=== PATIENT | female | born 1960 | race Caucasian/White ===

== ENCOUNTER 2016-11-28 22:13 | Emergency (ER) | payer MEDICAID ==
[~2016-11-28] VITALS: Ht 160 cm; Wt 109.0 kg
[~2016-11-28 22:13] MED LIST: ATOR20TA PO; AZEL137S7 BOTHNSTRLS; CLON2TAB4 PO; COR6; DOCU-138 PO; EMPA25TA PO; ENAL20TA PO; ESCI5TAB PO; FAMO20TA8 PO; FLONAS; GABA-290 PO; GLIP5TAB12 PO; HYDR-3735; HYDR-4135; INSU100I24 SQ; INSU100V9 SQ; LANC-335; LIRA0.6P2 SUBCUT; LORA10TA7 PO; MELO-58 PO; METF10002 PO; ONDA4TAB51 PO; OXYB15TA9 PO; PANT40TA4 PO; PIOG30TA26; PROP20TA7 PO; RANI-563; RIBO100T9 PO; SITA100T6; VITAMIN B2; XALAO; [UNRECOGNIZED DRUG - CODE] PO
[2016-11-28] MEDS ORDERED: MORPHINE SULFATE 4 MG/ML CPJ (NOT FOR IM USE) IV STA (23:53)
[2016-11-28] MEDS ORDERED: ONDANSETRON HCL 4MG/2ML VIAL IV STA (23:53)
[2016-11-29] MEDS ORDERED: DIPHENHYDRAMINE 50MG/ML VIAL IV ONE
[2016-11-29 00:30] LABS: BASOPHILS % 0.4 % (0.0-2.0); EOSINOPHILS % 2.4 % (0.0-5.0); HEMATOCRIT. 35.5 % (36.0-48.0); HEMOGLOBIN. 11.9 g/dL (12.0-16.0); LYMPHOCYTES % 25.4 % (20.0-50.0); MEAN CORPUSCULAR HEMOGLOBIN 27.1 pg (28.0-32.0); MEAN CORPUSCULAR VOLUME 81.2 fL (81.0-99.0); MEAN PLATELET VOLUME 8.2 fl (7.4-10.4); MONOCYTES % 8.2 % (2.0-8.0); NEUTROPHILS % 63.6 % (40.0-76.0); PLATELET 218 x1000/uL (130-400); RED BLOOD CELL COUNT 4.37 mill/uL (4.2-5.4); RED CELL DISTRIBUTION WIDTH 14.9 % (11.6-14.6)
[2016-11-29 00:35] LABS: INR 1.2; PROTHROMBIN TIME 12.2 sec
[2016-11-29 00:41] LABS: CLARITY URINE CLEAR (CLEAR); COLOR URINE YELLOW (YELLOW); GLUCOSE URINE NEGATIVE (NEGATIVE); KETONES URINE NEGATIVE (NEGATIVE); LEUKOCYTE ESTERASE URINE 1+ (NEGATIVE); NITRITE URINE NEGATIVE (NEGATIVE); OCCULT BLOOD URINE 3+ (NEGATIVE); PH URINE >=9.0 (4.5-8.0); PROTEIN URINE 1+ (NEGATIVE); SPECIFIC GRAVITY URINE 1.011 (1.005-1.030)
[2016-11-29 00:43] LABS: CARBON DIOXIDE 28 mEq/L (21-32); CHLORIDE 105 mEq/L (98-107); TROPONIN I < 0.02 ng/mL (0.00-0.04)
[2016-11-29] MEDS ORDERED: MORPHINE SULFATE 4 MG/ML CPJ (NOT FOR IM USE) IV ONE (02:30)
[2016-11-29] MEDS ORDERED: LEVOFLOXACIN 250MG TABLET PO ONE (02:30)
[2016-11-29] MEDS ORDERED: ONDANSETRON HCL 4MG/2ML VIAL IV ONE (02:30)
[2016-11-29 03:11] VITALS: BP 138/64
== END 2016-11-29 04:40 | disposition home or self-care (01) ==
LOC: ER 22:13
DX: G89.18 Other acute postprocedural pain (principal); N39.0 Urinary tract infection, site not specified; E11.9 Type 2 diabetes mellitus without complications; K21.9 Gastro-esophageal reflux disease without esophagitis; I10 Essential (primary) hypertension; F41.9 Anxiety disorder, unspecified; M19.90 Unspecified osteoarthritis, unspecified site; K76.0 Fatty (change of) liver, not elsewhere classified; E78.00 Pure hypercholesterolemia, unspecified; Z68.41 Body mass index [BMI] 40.0-44.9, adult; E66.9 Obesity, unspecified; Z90.49 Acquired absence of other specified parts of digestive tract; Z79.4 Long term (current) use of insulin; Z88.6 Allergy status to analgesic agent; Z88.0 Allergy status to penicillin; Z88.2 Allergy status to sulfonamides; Z98.890 Other specified postprocedural states
CPT/HCPCS: 36415; 71010; 74176; 80053; 81001; 83690; 83880; 84484; 85025; 85610; 93005; 96374; 96375; 96376; 99285; J2270; J2405; Z7610; J1200

== ENCOUNTER 2017-10-19 11:40 | Emergency (ER) | payer MEDICAID ==
[~2017-10-19] VITALS: Ht 152.4 cm; Wt 113.0 kg
[~2017-10-19 11:40] MED LIST changes: +MELO-106 PO; -MELO-58 PO; +METO-544 PO; +SITA100T11; -SITA100T6; -[UNRECOGNIZED DRUG - CODE] PO
[2017-10-19] MEDS ORDERED: METOCLOPRAMIDE HCL 10MG/2ML VIAL IV ONE (14:15)
[2017-10-19] MEDS ORDERED: MORPHINE SULFATE 2 MG/ML CPJ (NOT FOR IM USE) IV ONE (14:15)
[2017-10-19] MEDS ORDERED: DIPHENHYDRAMINE 50MG/ML VIAL IV ONE (14:15)
[2017-10-19] MEDS ORDERED: KETOROLAC 30MG/ML VIAL IV SCH (15:30)
[2017-10-19] MEDS ORDERED: MORPHINE SULFATE 4 MG/ML CPJ (NOT FOR IM USE) IV ONE (15:45)
[2017-10-19 17:01] VITALS: BP 124/62
== END 2017-10-19 17:04 | disposition home or self-care (01) ==
LOC: ER 12:38
DX: S90.111A Contusion of right great toe without damage to nail, initial encounter (principal); G43.909 Migraine, unspecified, not intractable, without status migrainosus; I10 Essential (primary) hypertension; Z88.0 Allergy status to penicillin; Z88.2 Allergy status to sulfonamides; Z88.5 Allergy status to narcotic agent; Z88.6 Allergy status to analgesic agent; Z88.8 Allergy status to other drugs, medicaments and biological substances; Z79.4 Long term (current) use of insulin; W20.8XXA Other cause of strike by thrown, projected or falling object, initial encounter; Y93.89 Activity, other specified; Y92.89 Other specified places as the place of occurrence of the external cause; Y99.8 Other external cause status
CPT/HCPCS: 73630; 96374; 96375; 99284; J1885; J2270; J2765

== ENCOUNTER 2019-01-11 19:33 | Inpatient (IN) | payer MEDICAID ==
[~2019-01-11] VITALS: Ht 160 cm; Wt 112.7 kg
[~2019-01-11 19:33] MED LIST changes: +CLON2TAB11 PO; -CLON2TAB4 PO; +METF-416 PO; -METF10002 PO; -PIOG30TA26; +PIOG30TA70
[2019-01-11 21:25] LABS: EOSINOPHILS % 2.1 % (0.0-5.0); HEMATOCRIT. 33.3 % (36.0-48.0); HEMOGLOBIN. 11.1 g/dL (12.0-16.0); LYMPHOCYTES % 41.4 % (20.0-50.0); MEAN CORPUSCULAR HEMOGLOBIN 28.5 pg (28.0-32.0); MEAN CORPUSCULAR VOLUME 85.7 fL (81.0-99.0); MEAN PLATELET VOLUME 8.7 fl (7.4-10.4); MONOCYTES % 8.9 % (2.0-8.0); NEUTROPHILS % 46.6 % (40.0-76.0); PLATELET 115 x1000/uL (130-400); RED BLOOD CELL COUNT 3.89 mill/uL (4.2-5.4); RED CELL DISTRIBUTION WIDTH 16.2 % (11.6-14.6)
[2019-01-11 21:30] LABS: CHLORIDE 106 mEq/L (98-107)
[2019-01-11 21:39] LABS: CREATINE KINASE 257 IU/L (26-192)
[2019-01-11] MEDS ORDERED: IPRATROPIUM/ALBUTEROL 0.5-3(2.5)MG/3ML NEB INH PRN (22:45)
[2019-01-11] MEDS ORDERED: CLONIDINE 0.1MG TABLET PO PRN (22:45)
[2019-01-11] MEDS ORDERED: MAGNESIUM/ALUMINUM HYDROXIDE/SIMETHICONE 30ML UDC PO PRN (22:45)
[2019-01-11] MEDS ORDERED: ONDANSETRON HCL 4MG/2ML INJ IV PRN (22:45)
[2019-01-11] MEDS ORDERED: ACETAMINOPHEN 325MG TABLET PO PRN (22:45)
[2019-01-11] MEDS ORDERED: GUAIFENESIN 200MG/10ML SUGAR FREE UDC PO PRN (22:45)
[2019-01-11] MEDS ORDERED: HYDROCODONE/ACETAMINOPHEN 5/325MG TABLET PO PRN (22:45)
[2019-01-11 23:14] LABS: CLARITY URINE CLEAR (CLEAR); COLOR URINE YELLOW (YELLOW); KETONES URINE NEGATIVE (NEGATIVE); LEUKOCYTE ESTERASE URINE NEGATIVE (NEGATIVE); NITRITE URINE NEGATIVE (NEGATIVE); OCCULT BLOOD URINE 1+ (NEGATIVE); PH URINE 7.5 (4.5-8.0); PROTEIN URINE NEGATIVE (NEGATIVE); SPECIFIC GRAVITY URINE 1.005 (1.005-1.030); UROBILINOGEN URINE 0.2 E.U./dL (0.2-1.0)
[2019-01-11 23:33] LABS: *AMPHETAMINES SCREEN URINE NEGATIVE (NEGATIVE); *BARBITURATES SCREEN URINE NEGATIVE (NEGATIVE)
[2019-01-11 23:34] LABS: *BENZODIAZEPINES SCREEN URINE NEGATIVE (NEGATIVE); *COCAINE SCREEN URINE NEGATIVE (NEGATIVE); CANNABINOID URINE SCREEN NEGATIVE (NEGATIVE); METHADONE URINE SCREEN NEGATIVE (NEGATIVE); OPIATES URINE SCREEN NEGATIVE (NEGATIVE); PHENCYCLIDINE URINE SCREEN NEGATIVE (NEGATIVE)
[2019-01-12] VITALS (7 sets, daily range): BP systolic 125–163; BP diastolic 52–67
[2019-01-12] MEDS ORDERED: INSULIN LISPRO (HIGH DOSE) 100 UNITS/ML SUBCUT SCH (01:30)
[2019-01-12] MEDS ORDERED: DEXTROSE 50% WATER 50ML SYRINGE IV PRN (01:30)
[2019-01-12 01:59] LABS: CHLORIDE 108 mEq/L (98-107)
[2019-01-12] MEDS: BLOOD SUGAR DIAGNOSTIC STRIP TEST SCH ×4 (05:59→20:07)
[2019-01-12] MEDS ORDERED: BUME0.5T5 MT (06:11)
[2019-01-12] MEDS ORDERED: TOPI25CA2 MT (06:11)
[2019-01-12] MEDS ORDERED: ESOM20CA37 PO (06:11)
[2019-01-12] MEDS ORDERED: BACL20TA MT (06:11)
[2019-01-12] MEDS ORDERED: LIDO30CR46 TP (06:11)
[2019-01-12] MEDS ORDERED: TC1U15 TP (06:11)
[2019-01-12] MEDS ORDERED: CALC-25 MT (06:11)
[2019-01-12] MEDS ORDERED: CLOT15CR2 TP (06:11)
[2019-01-12] MEDS ORDERED: TRAM50TA3 MT (06:11)
[2019-01-12] MEDS ORDERED: POTA8TAB8 MT (06:11)
[2019-01-12] MEDS ORDERED: CLOB60CR4 TP (06:11)
[2019-01-12] MEDS ORDERED: METR1KIT2 TP (06:11)
[2019-01-12] MEDS ORDERED: PRAV20TA57 MT (06:11)
[2019-01-12] MEDS ORDERED: CLIN300C11 MT (06:11)
[2019-01-12] MEDS: INSULIN LISPRO (HIGH DOSE) 100 UNITS/ML SUBCUT SCH ×4 (06:16→21:05)
[2019-01-12] MEDS ORDERED: PROP20TA7 MT (06:24)
[2019-01-12] MEDS ORDERED: ESCI20TA36 MT (06:26)
[2019-01-12] MEDS: ENOXAPARIN 30MG/0.3ML SYR SUBCUT SCH ×2 (10:04→21:00)
[2019-01-12] MEDS: DOCUSATE SODIUM 100MG CAPSULE PO PRN ×2 (10:04→21:06)
[2019-01-12 13:37] LABS: HEPATITIS B SURFACE ANTIGEN NEGATIVE
[2019-01-12 14:07] LABS: HEPATITIS A AB IGM NEGATIVE (NEGATIVE)
[2019-01-12] MEDS ORDERED: LORATADINE 10MG TABLET PO PRN (14:15)
[2019-01-12] MEDS: AMLODIPINE 2.5MG TABLET PO SCH (15:28)
[2019-01-12] MEDS: GABAPENTIN 300MG CAPSULE PO SCH ×2 (15:28→17:23)
[2019-01-12] MEDS: PROPRANOLOL HCL 10MG TABLET PO SCH (15:29)
[2019-01-12] MEDS: ENALAPRIL 5MG TABLET PO SCH (15:29)
[2019-01-12] MEDS: POTASSIUM CHLORIDE 8 MEQ TABLET.SA PO SCH (15:29)
[2019-01-12 16:19] LABS: BASOPHILS % 0.7 % (0.0-2.0); EOSINOPHILS % 2.6 % (0.0-5.0); HEMOGLOBIN. 11.6 g/dL (12.0-16.0); MEAN CORPUSCULAR HEMOGLOBIN 28.7 pg (28.0-32.0); MEAN CORPUSCULAR VOLUME 86.4 fL (81.0-99.0); MEAN PLATELET VOLUME 9.3 fl (7.4-10.4); MONOCYTES % 9.3 % (2.0-8.0); NEUTROPHILS % 43.4 % (40.0-76.0); PLATELET 106 x1000/uL (130-400); RED BLOOD CELL COUNT 4.05 mill/uL (4.2-5.4); RED CELL DISTRIBUTION WIDTH 16.5 % (11.6-14.6)
[2019-01-12 16:34] LABS: LDL CHOLESTEROL 83 mg/dL (5-100)
[2019-01-12 16:36] LABS: CREATINE KINASE 163 IU/L (26-192); HDL CHOLESTEROL 43 mg/dL (40-59)
[2019-01-12 16:38] LABS: CREATINE KINASE MB FRACTION 2.3 ng/mL (0.5-3.6)
[2019-01-12] MEDS: BUMETANIDE 1MG TABLET PO SCH (17:23)
[2019-01-12] MEDS: TOPIRAMATE 25MG TABLET PO SCH (21:00)
[2019-01-12] MEDS: ATORVASTATIN CALCIUM 20MG TABLET PO SCH (21:00)
[2019-01-13] VITALS: BP 140/65
[2019-01-13 04:00] VITALS: BP 126/50
[2019-01-13] MEDS: BLOOD SUGAR DIAGNOSTIC STRIP TEST SCH ×4 (06:04→21:00)
[2019-01-13] MEDS: TOPIRAMATE 25MG TABLET PO SCH ×3 (06:10→22:07)
[2019-01-13] MEDS: INSULIN LISPRO (HIGH DOSE) 100 UNITS/ML SUBCUT SCH ×4 (06:15→22:08)
[2019-01-13 08:00] VITALS: BP 136/61
[2019-01-13] MEDS: PROPRANOLOL HCL 10MG TABLET PO SCH (09:03)
[2019-01-13] MEDS: GABAPENTIN 300MG CAPSULE PO SCH ×2 (09:03→17:24)
[2019-01-13] MEDS: DOCUSATE SODIUM 100MG CAPSULE PO PRN ×2 (09:04→22:12)
[2019-01-13] MEDS: POTASSIUM CHLORIDE 8 MEQ TABLET.SA PO SCH (09:04)
[2019-01-13] MEDS: AMLODIPINE 2.5MG TABLET PO SCH (09:04)
[2019-01-13] MEDS: ENALAPRIL 5MG TABLET PO SCH (09:04)
[2019-01-13] MEDS: ENOXAPARIN 30MG/0.3ML SYR SUBCUT SCH ×2 (09:05→22:07)
[2019-01-13] MEDS: BUMETANIDE 1MG TABLET PO SCH (09:27)
[2019-01-13] MEDS ORDERED: BACLOFEN 10MG TABLET PO NR (10:30)
[2019-01-13 12:00] VITALS: BP 142/60
[2019-01-13] MEDS ORDERED: MECLIZINE 25MG TABLET PO PRN (13:15)
[2019-01-13 16:00] VITALS: BP 134/63
[2019-01-13 20:00] VITALS: BP_SYST 118; BP_SYST 129; BP_SYST 139; BP_DIAS 47; BP_DIAS 54; BP_DIAS 60
[2019-01-13] MEDS: ATORVASTATIN CALCIUM 20MG TABLET PO SCH (22:07)
[2019-01-13] MEDS: INSULIN GLARGINE UD 100 UNITS/ML SYR SUBCUT SCH (22:09)
[2019-01-14] VITALS: BP 128/57
[2019-01-14 04:00] VITALS: BP 125/50
[2019-01-14] MEDS: TOPIRAMATE 25MG TABLET PO SCH ×3 (06:14→21:52)
[2019-01-14] MEDS: INSULIN LISPRO (HIGH DOSE) 100 UNITS/ML SUBCUT SCH ×3 (06:18→21:56)
[2019-01-14] MEDS: BLOOD SUGAR DIAGNOSTIC STRIP TEST SCH ×4 (06:19→21:56)
[2019-01-14] MEDS ORDERED: INSULIN LISPRO 100 UNITS/ML SUBCUT SCH (06:45)
[2019-01-14 08:00] VITALS: BP 139/59
[2019-01-14] MEDS: DOCUSATE SODIUM 100MG CAPSULE PO PRN (09:09)
[2019-01-14] MEDS: POTASSIUM CHLORIDE 8 MEQ TABLET.SA PO SCH (09:10)
[2019-01-14] MEDS: PROPRANOLOL HCL 10MG TABLET PO SCH (09:10)
[2019-01-14] MEDS: AMLODIPINE 2.5MG TABLET PO SCH (09:10)
[2019-01-14] MEDS: ENALAPRIL 5MG TABLET PO SCH (09:11)
[2019-01-14] MEDS: GABAPENTIN 300MG CAPSULE PO SCH ×2 (09:11→17:00)
[2019-01-14] MEDS: BUMETANIDE 1MG TABLET PO SCH (09:11)
[2019-01-14] MEDS: ENOXAPARIN 30MG/0.3ML SYR SUBCUT SCH ×2 (09:13→21:56)
[2019-01-14] MEDS: INSULIN GLARGINE UD 100 UNITS/ML SYR SUBCUT SCH ×2 (09:15→21:55)
[2019-01-14 12:00] VITALS: BP 137/57
[2019-01-14] MEDS: INSULIN LISPRO 100 UNITS/ML SUBCUT SCH ×2 (12:38→16:45)
[2019-01-14 16:00] VITALS: BP 149/66
[2019-01-14 20:00] VITALS: BP_SYST 113; BP_SYST 139; BP_DIAS 27; BP_DIAS 63
[2019-01-14 20:17] LABS: BASOPHILS % 0.7 % (0.0-2.0); EOSINOPHILS % 2.4 % (0.0-5.0); HEMATOCRIT. 41.4 % (36.0-48.0); HEMOGLOBIN. 13.5 g/dL (12.0-16.0); MEAN CORPUSCULAR HEMOGLOBIN 28.4 pg (28.0-32.0); MEAN CORPUSCULAR VOLUME 87.1 fL (81.0-99.0); MEAN PLATELET VOLUME 9.8 fl (7.4-10.4); MONOCYTES % 10.5 % (2.0-8.0); NEUTROPHILS % 46.4 % (40.0-76.0); PLATELET 128 x1000/uL (130-400); RED BLOOD CELL COUNT 4.75 mill/uL (4.2-5.4); RED CELL DISTRIBUTION WIDTH 16.6 % (11.6-14.6)
[2019-01-14 20:24] LABS: CHLORIDE 107 mEq/L (98-107)
[2019-01-14] MEDS: ATORVASTATIN CALCIUM 20MG TABLET PO SCH (21:52)
[2019-01-14 22:01] LABS: INR 1.2; PROTHROMBIN TIME 12.6 sec (9.6-11.0)
[2019-01-15] VITALS: BP 113/27
[2019-01-15 04:00] VITALS: BP 134/53
[2019-01-15] MEDS: BLOOD SUGAR DIAGNOSTIC STRIP TEST SCH ×4 (06:04→21:28)
[2019-01-15] MEDS: TOPIRAMATE 25MG TABLET PO SCH ×3 (06:04→21:40)
[2019-01-15] MEDS: INSULIN LISPRO (HIGH DOSE) 100 UNITS/ML SUBCUT SCH ×4 (06:15→21:39)
[2019-01-15] MEDS: INSULIN LISPRO 100 UNITS/ML SUBCUT SCH ×3 (06:15→18:45)
[2019-01-15 06:34] LABS: BASOPHILS % 0.8 % (0.0-2.0); EOSINOPHILS % 2.5 % (0.0-5.0); HEMATOCRIT. 38.2 % (36.0-48.0); HEMOGLOBIN. 12.9 g/dL (12.0-16.0); MEAN CORPUSCULAR HEMOGLOBIN 28.8 pg (28.0-32.0); MEAN CORPUSCULAR VOLUME 85.4 fL (81.0-99.0); MEAN PLATELET VOLUME 9.2 fl (7.4-10.4); MONOCYTES % 8.1 % (2.0-8.0); NEUTROPHILS % 47.6 % (40.0-76.0); PLATELET 135 x1000/uL (130-400); RED BLOOD CELL COUNT 4.48 mill/uL (4.2-5.4); RED CELL DISTRIBUTION WIDTH 16.7 % (11.6-14.6)
[2019-01-15 06:37] LABS: CHLORIDE 108 mEq/L (98-107)
[2019-01-15 08:00] VITALS: BP_SYST 114; BP_SYST 120; BP_SYST 124; BP_DIAS 51; BP_DIAS 60
[2019-01-15] MEDS: POTASSIUM CHLORIDE 8 MEQ TABLET.SA PO SCH (08:35)
[2019-01-15] MEDS: ENALAPRIL 5MG TABLET PO SCH (08:35)
[2019-01-15] MEDS: GABAPENTIN 300MG CAPSULE PO SCH ×2 (08:36→18:40)
[2019-01-15] MEDS: BUMETANIDE 1MG TABLET PO SCH (08:36)
[2019-01-15] MEDS: AMLODIPINE 2.5MG TABLET PO SCH (08:36)
[2019-01-15] MEDS: ENOXAPARIN 30MG/0.3ML SYR SUBCUT SCH ×2 (08:37→21:40)
[2019-01-15] MEDS: PROPRANOLOL HCL 10MG TABLET PO SCH (08:37)
[2019-01-15] MEDS: INSULIN GLARGINE UD 100 UNITS/ML SYR SUBCUT SCH ×2 (10:30→21:57)
[2019-01-15 12:00] VITALS: BP 125/52
[2019-01-15] MEDS ORDERED: AMLO2.5T45 PO (13:10)
[2019-01-15 15:02] LABS: BG BASE EXCESS -3.5 mmol/L (-2.0-2.0); BG CARBOXYHEMOGLOBIN 0.7 % (0.5-1.5); BG DEOXYHEMOGLOBIN 6.2 % (0.0-5.0); BG FRACTION INSPIRED OXYGEN 21; BG HCO3 ACT 19.8 mmol/L (22.0-26.0); BG METHEMOGLOBIN 0.2 % (0.0-1.5); BG OXYGEN SATURATION 93.7 % (92.0-98.5); BG OXYHEMOGLOBIN 92.9 % (94.0-97.0); BG PCO2 31.1 mmHg (35.0-45.0); BG PH 7.422 (7.350-7.450); BG PO2 72.1 mmHg (75.0-100.0); BG SAMPLE SITE LEFT BRACHIAL; BG TOTAL HEMOGLOBIN 14.4 g/dL (12.0-18.0); BG VENT MODE ROOM AIR
[2019-01-15 16:00] VITALS: BP 125/53
[2019-01-15 20:00] VITALS: BP_SYST 153; BP_SYST 155; BP_SYST 157; BP_DIAS 71; BP_DIAS 77; BP_DIAS 79
[2019-01-15] MEDS: ATORVASTATIN CALCIUM 20MG TABLET PO SCH (21:57)
[2019-01-16] VITALS: BP 118/56
[2019-01-16 04:00] VITALS: BP 132/65
[2019-01-16] MEDS: BLOOD SUGAR DIAGNOSTIC STRIP TEST SCH ×4 (05:54→20:56)
[2019-01-16] MEDS: TOPIRAMATE 25MG TABLET PO SCH ×3 (06:02→21:48)
[2019-01-16] MEDS: INSULIN LISPRO 100 UNITS/ML SUBCUT SCH ×3 (06:40→18:42)
[2019-01-16] MEDS: INSULIN LISPRO (HIGH DOSE) 100 UNITS/ML SUBCUT SCH ×4 (06:41→21:49)
[2019-01-16] MEDS: ENALAPRIL 5MG TABLET PO SCH (09:45)
[2019-01-16] MEDS: GABAPENTIN 300MG CAPSULE PO SCH ×2 (09:45→17:08)
[2019-01-16] MEDS: PROPRANOLOL HCL 10MG TABLET PO SCH (09:45)
[2019-01-16] MEDS: POTASSIUM CHLORIDE 8 MEQ TABLET.SA PO SCH (09:45)
[2019-01-16] MEDS: AMLODIPINE 2.5MG TABLET PO SCH (09:46)
[2019-01-16] MEDS: ENOXAPARIN 30MG/0.3ML SYR SUBCUT SCH ×2 (09:46→21:48)
[2019-01-16] MEDS: INSULIN GLARGINE UD 100 UNITS/ML SYR SUBCUT SCH ×2 (09:47→21:49)
[2019-01-16] MEDS: BUMETANIDE 1MG TABLET PO SCH (09:51)
[2019-01-16] MEDS ORDERED: GADOBENATE DIMEGLUMINE 529 MG/ML 10ML IV ONE (13:45)
[2019-01-16] MEDS: LACTULOSE 20G/30ML UDC PO SCH ×2 (14:30→21:48)
[2019-01-16] MEDS ORDERED: DIAZEPAM 5 MG TABLET PO NR (14:30)
[2019-01-16 16:00] VITALS: BP 100/50
[2019-01-16] MEDS ORDERED: LACTULOSE 20G/30ML UDC PO SCH (17:00)
[2019-01-16 18:34] LABS: VITAMIN B12 SERUM 540 pg/mL (211-911)
[2019-01-16] MEDS: THIAMINE HCL 100MG TABLET PO SCH (18:41)
[2019-01-16] MEDS: MULTIVITAMINS,THER W-MINERALS TABLET PO SCH (18:41)
[2019-01-16] MEDS: FOLIC ACID/VITAMIN B COMP W-C TABLET PO SCH (18:41)
[2019-01-16 20:00] VITALS: BP 118/59
[2019-01-16] MEDS: ATORVASTATIN CALCIUM 20MG TABLET PO SCH (21:48)
[2019-01-17] VITALS: BP 106/53
[2019-01-17 04:00] VITALS: BP 124/58
[2019-01-17] MEDS: BLOOD SUGAR DIAGNOSTIC STRIP TEST SCH ×4 (07:06→20:37)
[2019-01-17] MEDS: LACTULOSE 20G/30ML UDC PO SCH ×3 (07:25→20:37)
[2019-01-17] MEDS: TOPIRAMATE 25MG TABLET PO SCH ×3 (07:25→20:36)
[2019-01-17] MEDS: INSULIN LISPRO (HIGH DOSE) 100 UNITS/ML SUBCUT SCH ×4 (07:26→20:45)
[2019-01-17 08:00] VITALS: BP 149/65
[2019-01-17] MEDS: ENALAPRIL 5MG TABLET PO SCH (09:01)
[2019-01-17] MEDS: BUMETANIDE 1MG TABLET PO SCH (09:02)
[2019-01-17] MEDS: PROPRANOLOL HCL 10MG TABLET PO SCH (09:02)
[2019-01-17] MEDS: FOLIC ACID/VITAMIN B COMP W-C TABLET PO SCH (09:02)
[2019-01-17] MEDS: AMLODIPINE 2.5MG TABLET PO SCH (09:02)
[2019-01-17] MEDS: THIAMINE HCL 100MG TABLET PO SCH (09:02)
[2019-01-17] MEDS: GABAPENTIN 300MG CAPSULE PO SCH ×2 (09:02→17:25)
[2019-01-17] MEDS: POTASSIUM CHLORIDE 8 MEQ TABLET.SA PO SCH (09:02)
[2019-01-17] MEDS: MULTIVITAMINS,THER W-MINERALS TABLET PO SCH (09:03)
[2019-01-17] MEDS: ENOXAPARIN 30MG/0.3ML SYR SUBCUT SCH ×2 (09:03→20:36)
[2019-01-17] MEDS: INSULIN LISPRO 100 UNITS/ML SUBCUT SCH ×3 (09:04→17:28)
[2019-01-17] MEDS: INSULIN GLARGINE UD 100 UNITS/ML SYR SUBCUT SCH ×2 (09:43→20:51)
[2019-01-17 12:00] VITALS: BP 118/66
[2019-01-17 20:13] VITALS: BP 127/67
[2019-01-17 20:35] LABS: BASOPHILS % 0.9 % (0.0-2.0); EOSINOPHILS % 2.1 % (0.0-5.0); HEMATOCRIT. 43.1 % (36.0-48.0); HEMOGLOBIN. 14.3 g/dL (12.0-16.0); LYMPHOCYTES % 40.3 % (20.0-50.0); MEAN CORPUSCULAR HEMOGLOBIN 28.8 pg (28.0-32.0); MEAN CORPUSCULAR VOLUME 86.8 fL (81.0-99.0); MEAN PLATELET VOLUME 9.6 fl (7.4-10.4); MONOCYTES % 10.9 % (2.0-8.0); NEUTROPHILS % 45.8 % (40.0-76.0); PLATELET 161 x1000/uL (130-400); RED BLOOD CELL COUNT 4.96 mill/uL (4.2-5.4); RED CELL DISTRIBUTION WIDTH 16.5 % (11.6-14.6)
[2019-01-17] MEDS: ATORVASTATIN CALCIUM 20MG TABLET PO SCH (20:36)
[2019-01-17] MEDS: RIFAXIMIN 550 MG TABLET PO SCH (20:36)
[2019-01-17 20:52] LABS: CHLORIDE 110 mEq/L (98-107)
[2019-01-18] VITALS: BP 129/59
[2019-01-18 04:00] VITALS: BP 136/69
[2019-01-18 05:15] LABS: HIV SCREEN 4G Non Reactive (Non Reactive)
[2019-01-18] MEDS: LACTULOSE 20G/30ML UDC PO SCH ×2 (06:09→16:38)
[2019-01-18] MEDS: TOPIRAMATE 25MG TABLET PO SCH ×2 (06:09→16:38)
[2019-01-18] MEDS: BLOOD SUGAR DIAGNOSTIC STRIP TEST SCH ×3 (06:11→16:32)
[2019-01-18] MEDS: INSULIN LISPRO (HIGH DOSE) 100 UNITS/ML SUBCUT SCH ×3 (06:12→16:41)
[2019-01-18] MEDS: INSULIN LISPRO 100 UNITS/ML SUBCUT SCH ×3 (06:16→16:41)
[2019-01-18 08:19] VITALS: BP 129/55
[2019-01-18] MEDS: INSULIN GLARGINE UD 100 UNITS/ML SYR SUBCUT SCH (09:24)
[2019-01-18] MEDS: FOLIC ACID/VITAMIN B COMP W-C TABLET PO SCH (09:26)
[2019-01-18] MEDS: GABAPENTIN 300MG CAPSULE PO SCH ×2 (09:26→16:38)
[2019-01-18] MEDS: AMLODIPINE 2.5MG TABLET PO SCH (09:26)
[2019-01-18] MEDS: MULTIVITAMINS,THER W-MINERALS TABLET PO SCH (09:26)
[2019-01-18] MEDS: POTASSIUM CHLORIDE 8 MEQ TABLET.SA PO SCH (09:26)
[2019-01-18] MEDS: ENALAPRIL 5MG TABLET PO SCH (09:26)
[2019-01-18] MEDS: RIFAXIMIN 550 MG TABLET PO SCH (09:26)
[2019-01-18] MEDS: PROPRANOLOL HCL 10MG TABLET PO SCH (09:27)
[2019-01-18] MEDS: BUMETANIDE 1MG TABLET PO SCH (09:27)
[2019-01-18] MEDS: THIAMINE HCL 100MG TABLET PO SCH (09:27)
[2019-01-18] MEDS: ENOXAPARIN 30MG/0.3ML SYR SUBCUT SCH (09:28)
[2019-01-18 12:50] VITALS: BP 180/40
[2019-01-18 13:30] LABS: BASOPHILS % 0.9 % (0.0-2.0); EOSINOPHILS % 2.1 % (0.0-5.0); HEMATOCRIT. 41.7 % (36.0-48.0); HEMOGLOBIN. 13.8 g/dL (12.0-16.0); LYMPHOCYTES % 50.8 % (20.0-50.0); MEAN CORPUSCULAR HEMOGLOBIN 28.6 pg (28.0-32.0); MEAN CORPUSCULAR VOLUME 86.1 fL (81.0-99.0); MEAN PLATELET VOLUME 9.8 fl (7.4-10.4); MONOCYTES % 9.6 % (2.0-8.0); NEUTROPHILS % 36.6 % (40.0-76.0); PLATELET 134 x1000/uL (130-400); RED BLOOD CELL COUNT 4.84 mill/uL (4.2-5.4); RED CELL DISTRIBUTION WIDTH 16.5 % (11.6-14.6)
[2019-01-18 13:35] LABS: CHLORIDE 106 mEq/L (98-107)
[2019-01-18 16:33] VITALS: BP 100/36
== END 2019-01-18 18:10 | disposition home or self-care (01) | DRG 279 ==
LOC: ER 20:30 → EDBEDREQ 22:31 → EDBEDREQTM 22:31 → ENRESERV 01-12 01:01 → 5WST 01-12 02:34
PROVIDERS: ADMIT Internal Medicine; ATTEND Internal Medicine
DX: K72.90 Hepatic failure, unspecified without coma (principal); G93.41 Metabolic encephalopathy; K65.2 Spontaneous bacterial peritonitis; D68.9 Coagulation defect, unspecified; D69.6 Thrombocytopenia, unspecified; I67.82 Cerebral ischemia; E66.01 Morbid (severe) obesity due to excess calories; G90.8 Other disorders of autonomic nervous system; R07.89 Other chest pain; I11.9 Hypertensive heart disease without heart failure; K74.60 Unspecified cirrhosis of liver; E11.9 Type 2 diabetes mellitus without complications; E78.5 Hyperlipidemia, unspecified; I25.10 Atherosclerotic heart disease of native coronary artery without angina pectoris; D64.9 Anemia, unspecified; S09.90XA Unspecified injury of head, initial encounter; X58.XXXA Exposure to other specified factors, initial encounter; M19.90 Unspecified osteoarthritis, unspecified site; R55 Syncope and collapse; R74.0 Nonspecific elevation of levels of transaminase and lactic acid dehydrogenase [LDH]; Z86.73 Personal history of transient ischemic attack (TIA), and cerebral infarction without residual deficits; I25.2 Old myocardial infarction; Z79.4 Long term (current) use of insulin; Z90.49 Acquired absence of other specified parts of digestive tract; Z88.0 Allergy status to penicillin; Z88.2 Allergy status to sulfonamides; Z88.6 Allergy status to analgesic agent; Z88.5 Allergy status to narcotic agent; Z88.8 Allergy status to other drugs, medicaments and biological substances; Z68.42 Body mass index [BMI] 45.0-49.9, adult; Z79.84 Long term (current) use of oral hypoglycemic drugs; Z79.899 Other long term (current) drug therapy; Y93.89 Activity, other specified; Y92.89 Other specified places as the place of occurrence of the external cause; Y99.8 Other external cause status; Z71.3 Dietary counseling and surveillance
CPT/HCPCS: 36415; 36600; 70551; 71045; 73600; 76700; 80048; 80061; 80076; 80305; 82140; 82375; 82550; 82553; 82607; 82693; 82805; 82962; 83036; 83735; 83880; 84145; 84443; 84484; 86705; 86709; 86803; 87340; 87389; 93005; 93306; 93880; 97116; 97162; 97166; 97530; 99285; A9577; C1893; J1650; J1815; J8597

== ENCOUNTER 2019-09-19 17:23 | Emergency (ER) | payer MEDICAID ==
[~2019-09-19] VITALS: Ht 165.1 cm; Wt 152.0 kg
[~2019-09-19 17:23] MED LIST changes: +AMLO2.5T45 PO; -AZEL137S7 BOTHNSTRLS; +BUME0.5T5 MT; +CALC-25 MT; +CLOB60CR4 TP; -CLON2TAB11 PO; +CLOT15CR2 TP; -COR6; -EMPA25TA PO; +ESCI20TA43 MT; -ESCI5TAB PO; +ESOM20CA37 PO; -FAMO20TA8 PO; -FLONAS; -GLIP5TAB12 PO; -HYDR-3735; -HYDR-4135; -LIRA0.6P2 SUBCUT; -MELO-106 PO; -METO-544 PO; +METR1KIT2 TP; -ONDA4TAB51 PO; -PANT40TA4 PO; -PIOG30TA70; +POTA8TAB8 MT; -PROP20TA7 PO; -RANI-563; -RIBO100T9 PO; -SITA100T11; +TOPI25CA5 MT; -VITAMIN B2; -XALAO
[2019-09-19 18:15] LABS: BASOPHILS % 0.6 % (0.0-2.0); EOSINOPHILS % 1.9 % (0.0-5.0); HEMATOCRIT. 36.8 % (36.0-48.0); HEMOGLOBIN. 12.5 g/dL (12.0-16.0); LYMPHOCYTES % 34.1 % (20.0-50.0); MEAN CORPUSCULAR HEMOGLOBIN 30.3 pg (28.0-32.0); MONOCYTES % 7.6 % (2.0-8.0); NEUTROPHILS % 55.8 % (40.0-76.0); PLATELET 112 x1000/uL (130-400); RED BLOOD CELL COUNT 4.14 mill/uL (4.2-5.4); RED CELL DISTRIBUTION WIDTH 17.3 % (11.6-14.6)
[2019-09-19 18:16] LABS: INR 1.1
[2019-09-19 18:25] LABS: CHLORIDE 100 mEq/L (98-107)
[2019-09-19 18:30] LABS: ETHANOL BLOOD < 10 mg/dL
[2019-09-19 18:35] LABS: BETA HYDROXYBUTYRATE 0.1 mMol/L (0.0-0.3)
[2019-09-19] MEDS ORDERED: INSULIN REGULAR (HUMULIN R) 300UNITS/3ML IV ONE (18:45)
[2019-09-19] MEDS ORDERED: SODIUM CHLORIDE 0.9% 1,000 ML IV ONE (19:05)
[2019-09-19] MEDS ORDERED: INSULIN REGULAR (HUMULIN R) 300UNITS/3ML SUBCUT ONE (19:45)
[2019-09-19 19:52] LABS: CLARITY URINE CLEAR (CLEAR); COLOR URINE YELLOW (YELLOW); KETONES URINE NEGATIVE (NEGATIVE); LEUKOCYTE ESTERASE URINE 1+ (NEGATIVE); NITRITE URINE NEGATIVE (NEGATIVE); OCCULT BLOOD URINE 1+ (NEGATIVE); PROTEIN URINE TRACE (NEGATIVE); SPECIFIC GRAVITY URINE 1.018 (1.005-1.030); UROBILINOGEN URINE 0.2 E.U./dL (0.2-1.0)
[2019-09-19] MEDS ORDERED: SODIUM POLYSTYRENE SULFONATE 15 G/60 ML BOT PO ONE (20:00)
[2019-09-19 20:01] LABS: *AMPHETAMINES SCREEN URINE NEGATIVE (NEGATIVE); *BARBITURATES SCREEN URINE NEGATIVE (NEGATIVE); *BENZODIAZEPINES SCREEN URINE NEGATIVE (NEGATIVE); *COCAINE SCREEN URINE NEGATIVE (NEGATIVE); METHADONE URINE SCREEN NEGATIVE (NEGATIVE)
[2019-09-19 20:02] LABS: CANNABINOID URINE SCREEN NEGATIVE (NEGATIVE); OPIATES URINE SCREEN NEGATIVE (NEGATIVE); PHENCYCLIDINE URINE SCREEN NEGATIVE (NEGATIVE)
[2019-09-19 22:54] VITALS: BP 146/80
== END 2019-09-19 23:22 | disposition short-term general hospital (02) ==
LOC: ER 17:23 → CANBEDREQ 23:01 → ER 23:22
DX: E11.65 Type 2 diabetes mellitus with hyperglycemia (principal); R53.1 Weakness; E87.5 Hyperkalemia; E78.00 Pure hypercholesterolemia, unspecified; K76.9 Liver disease, unspecified; Z79.4 Long term (current) use of insulin; Z88.2 Allergy status to sulfonamides; Z88.6 Allergy status to analgesic agent; Z88.0 Allergy status to penicillin
CPT/HCPCS: 36415; 71045; 80053; 80305; 80320; 81003; 82010; 82962; 83690; 84484; 85025; 85610; 93005; 96372; 99285; J1815; J7030; G0480

== ENCOUNTER 2020-02-08 16:16 | Emergency (ER) | payer MEDICAID ==
[~2020-02-08] VITALS: Ht 165.1 cm; Wt 137.0 kg
[~2020-02-08 16:16] MED LIST changes: -ENAL20TA PO; +LACT10SO7 PO; +MYCOC15 TOP; +PROP10TA10 PO; +RIFA550T PO
[2020-02-08 17:29] LABS: BASOPHILS % 0.8 % (0.0-2.0); EOSINOPHILS % 1.4 % (0.0-5.0); HEMATOCRIT. 38.8 % (36.0-48.0); HEMOGLOBIN. 13.3 g/dL (12.0-16.0); LYMPHOCYTES % 31.6 % (20.0-50.0); MEAN CORPUSCULAR HEMOGLOBIN 32.4 pg (28.0-32.0); MEAN CORPUSCULAR VOLUME 94.5 fL (81.0-99.0); MEAN PLATELET VOLUME 9.9 fl (7.4-10.4); MONOCYTES % 9.1 % (2.0-8.0); NEUTROPHILS % 57.1 % (40.0-76.0); PLATELET 91 x1000/uL (130-400); RED BLOOD CELL COUNT 4.11 mill/uL (4.2-5.4); RED CELL DISTRIBUTION WIDTH 14.1 % (11.6-14.6)
[2020-02-08 17:33] LABS: CHLORIDE 106 mEq/L (98-107)
[2020-02-08 17:44] LABS: INR 1.2; PROTHROMBIN TIME 12.9 sec (9.6-11.0)
[2020-02-08 18:37] LABS: CLARITY URINE CLEAR (CLEAR); COLOR URINE YELLOW (YELLOW); KETONES URINE NEGATIVE (NEGATIVE); LEUKOCYTE ESTERASE URINE NEGATIVE (NEGATIVE); NITRITE URINE NEGATIVE (NEGATIVE); OCCULT BLOOD URINE 1+ (NEGATIVE); PH URINE 7.5 (4.5-8.0); PROTEIN URINE 1+ (NEGATIVE); UROBILINOGEN URINE 0.2 E.U./dL (0.2-1.0)
[2020-02-08] MEDS ORDERED: LACTULOSE 20G/30ML UDC PO NR (18:45)
[2020-02-08 18:52] LABS: *AMPHETAMINES SCREEN URINE NEGATIVE (NEGATIVE); *BARBITURATES SCREEN URINE NEGATIVE (NEGATIVE); CANNABINOID URINE SCREEN NEGATIVE (NEGATIVE)
[2020-02-08 18:53] LABS: *BENZODIAZEPINES SCREEN URINE NEGATIVE (NEGATIVE); *COCAINE SCREEN URINE NEGATIVE (NEGATIVE); METHADONE URINE SCREEN NEGATIVE (NEGATIVE); OPIATES URINE SCREEN NEGATIVE (NEGATIVE); PHENCYCLIDINE URINE SCREEN NEGATIVE (NEGATIVE)
[2020-02-08 22:15] VITALS: BP 167/94
== END 2020-02-08 23:12 | disposition short-term general hospital (02) ==
LOC: ER 16:16 → EDBEDREQTM 18:41 → EDBEDREQ 18:41 → ER 23:12 → CANBEDREQ 23:54
DX: K72.90 Hepatic failure, unspecified without coma (principal); E11.9 Type 2 diabetes mellitus without complications; E78.00 Pure hypercholesterolemia, unspecified; I10 Essential (primary) hypertension; Z79.4 Long term (current) use of insulin; Z79.899 Other long term (current) drug therapy; Z88.0 Allergy status to penicillin; Z88.2 Allergy status to sulfonamides; Z88.5 Allergy status to narcotic agent
CPT/HCPCS: 36415; 71045; 80053; 80305; 80320; 81003; 82140; 82962; 83605; 83880; 84484; 85025; 93005; 99285; G0480

== ENCOUNTER 2020-04-19 15:31 | Emergency (ER) | payer MEDICAID ==
[~2020-04-19] VITALS: Ht 165.1 cm; Wt 82.0 kg
[~2020-04-19 15:31] MED LIST changes: -AMLO2.5T45 PO; -CALC-25 MT; -CLOB60CR4 TP; -CLOT15CR2 TP; -INSU100I24 SQ; -INSU100V9 SQ; +INSU500V SQ; -LORA10TA7 PO; -METF-416 PO; -METR1KIT2 TP; -MYCOC15 TOP; -OXYB15TA9 PO; +SUCR1TAB MT
[2020-04-19 18:20] LABS: BASOPHILS % 0.9 % (0.0-2.0); EOSINOPHILS % 2.7 % (0.0-5.0); HEMATOCRIT. 40.7 % (36.0-48.0); HEMOGLOBIN. 13.8 g/dL (12.0-16.0); MEAN CORPUSCULAR HEMOGLOBIN 32.5 pg (28.0-32.0); MEAN CORPUSCULAR VOLUME 96.2 fL (81.0-99.0); NEUTROPHILS % 50.4 % (40.0-76.0); PLATELET 86 x1000/uL (130-400); RED BLOOD CELL COUNT 4.23 mill/uL (4.2-5.4); RED CELL DISTRIBUTION WIDTH 14.2 % (11.6-14.6)
[2020-04-19 18:26] LABS: CHLORIDE 105 mEq/L (98-107)
[2020-04-19 18:46] LABS: INR 1.2; PROTHROMBIN TIME 12.2 sec (9.6-11.0)
[2020-04-19] MEDS ORDERED: DIPHENHYDRAMINE 50MG/ML VIAL IV ONE (19:00)
[2020-04-19] MEDS ORDERED: INSULIN REGULAR 0.5UNIT/ML SYR(NEO) IV ONE (20:00)
[2020-04-19] MEDS ORDERED: IOHEXOL-300 100 ML BOTTLE ONE (20:34)
[2020-04-19] MEDS ORDERED: INSULIN REGULAR (HUMULIN R) 300UNITS/3ML IV NR (20:54)
[2020-04-19 23:00] VITALS: BP 121/69
== END 2020-04-19 23:38 | disposition home or self-care (01) ==
LOC: ER 15:31
DX: M54.5 Low back pain (principal); M79.18 Myalgia, other site; E11.65 Type 2 diabetes mellitus with hyperglycemia; I10 Essential (primary) hypertension; K76.9 Liver disease, unspecified; Z88.0 Allergy status to penicillin; Z88.2 Allergy status to sulfonamides; Z88.5 Allergy status to narcotic agent; Z79.4 Long term (current) use of insulin; V03.00XA Pedestrian on foot injured in collision with car, pick-up truck or van in nontraffic accident, initial encounter; Y93.89 Activity, other specified; Y92.488 Other paved roadways as the place of occurrence of the external cause
CPT/HCPCS: 36415; 70450; 71260; 72125; 73060; 74177; 80048; 82962; 85025; 85610; 96374; 96375; 99285; J1200; J1815; Q9967

== ENCOUNTER 2020-09-01 14:38 | Inpatient (IN) | payer MEDICAID ==
[~2020-09-01] VITALS: Ht 165.1 cm; Wt 115.7 kg
[~2020-09-01 14:38] MED LIST changes: +ESCI20TA37 MT; -ESCI20TA43 MT
[2020-09-01 16:12] LABS: BASOPHILS % 0.8 % (0.0-2.0); CHLORIDE 107 mEq/L (98-107); EOSINOPHILS % 1.7 % (0.0-5.0); HEMATOCRIT. 43.2 % (36.0-48.0); HEMOGLOBIN. 14.4 g/dL (12.0-16.0); LYMPHOCYTES % 28.4 % (20.0-50.0); MEAN CORPUSCULAR HEMOGLOBIN 31.8 pg (28.0-32.0); MEAN CORPUSCULAR VOLUME 95.5 fL (81.0-99.0); MONOCYTES % 5.4 % (2.0-8.0); NEUTROPHILS % 63.7 % (40.0-76.0); RED BLOOD CELL COUNT 4.53 mill/uL (4.2-5.4); RED CELL DISTRIBUTION WIDTH 14.7 % (11.6-14.6)
[2020-09-01 16:15] LABS: INR 1.2; PROTHROMBIN TIME 12.9 sec (9.6-11.0)
[2020-09-01 16:17] LABS: ETHANOL BLOOD < 10 mg/dL
[2020-09-01 16:19] LABS: CLARITY URINE CLEAR (CLEAR); COLOR URINE YELLOW (YELLOW); KETONES URINE NEGATIVE (NEGATIVE); LEUKOCYTE ESTERASE URINE NEGATIVE (NEGATIVE); NITRITE URINE NEGATIVE (NEGATIVE); OCCULT BLOOD URINE 1+ (NEGATIVE); PROTEIN URINE NEGATIVE (NEGATIVE); UROBILINOGEN URINE 0.2 E.U./dL (0.2-1.0)
[2020-09-01 16:22] LABS: CREATINE KINASE 78 IU/L (26-192)
[2020-09-01 16:38] LABS: MEAN PLATELET VOLUME 9.7 fl (7.4-10.4); PLATELET 134 x1000/uL (130-400)
[2020-09-01 17:01] LABS: *COCAINE SCREEN URINE NEGATIVE (NEGATIVE); CANNABINOID URINE SCREEN NEGATIVE (NEGATIVE); METHADONE URINE SCREEN NEGATIVE (NEGATIVE)
[2020-09-01 17:02] LABS: *AMPHETAMINES SCREEN URINE NEGATIVE (NEGATIVE); *BARBITURATES SCREEN URINE NEGATIVE (NEGATIVE); OPIATES URINE SCREEN NEGATIVE (NEGATIVE); PHENCYCLIDINE URINE SCREEN NEGATIVE (NEGATIVE)
[2020-09-01 17:03] LABS: *BENZODIAZEPINES SCREEN URINE NEGATIVE (NEGATIVE)
[2020-09-01 18:03] LABS: BG BASE EXCESS -1.3 mmol/L (-2.0-2.0); BG CARBOXYHEMOGLOBIN 0.7 % (0.5-1.5); BG DEOXYHEMOGLOBIN 2.7 % (0.0-5.0); BG FRACTION INSPIRED OXYGEN 21; BG HCO3 ACT 22.6 mmol/L (22.0-26.0); BG METHEMOGLOBIN 0.3 % (0.0-1.5); BG OXYGEN SATURATION 97.3 % (92.0-98.5); BG OXYHEMOGLOBIN 96.3 % (94.0-97.0); BG PCO2 35.4 mmHg (35.0-45.0); BG PH 7.423 (7.350-7.450); BG SAMPLE SITE RIGHT RADIAL; BG TOTAL HEMOGLOBIN 13.4 g/dL (12.0-18.0); BG VENT MODE ROOM AIR
[2020-09-02] MEDS ORDERED: ONDANSETRON HCL 4MG/2ML INJ IV PRN (08:45)
[2020-09-02] MEDS ORDERED: DIPHENHYDRAMINE 50MG/ML VIAL IV PRN (08:45)
[2020-09-02] MEDS ORDERED: CLONIDINE 0.1MG TABLET PO PRN (08:45)
[2020-09-02] MEDS ORDERED: ENOXAPARIN 40MG/0.4ML SYR SUBCUT SCH (08:45)
[2020-09-02] MEDS: ENOXAPARIN 30MG/0.3ML SYR SUBCUT SCH ×2 (10:00→21:54)
[2020-09-02 12:00] VITALS: BP 151/70
[2020-09-02 13:19] VITALS: BP 129/79
[2020-09-02] MEDS: LACTULOSE 20G/30ML UDC PO SCH ×2 (14:38→21:54)
[2020-09-02] MEDS ORDERED: DEXTROSE 50% WATER 50ML SYRINGE IV PRN (15:30)
[2020-09-02 16:00] VITALS: BP 152/74
[2020-09-02] MEDS: BLOOD SUGAR DIAGNOSTIC STRIP TEST SCH ×2 (17:18→21:55)
[2020-09-02] MEDS: INSULIN LISPRO 100 UNITS/ML SUBCUT SCH ×2 (18:10→21:55)
[2020-09-02 20:00] VITALS: BP 150/89
[2020-09-02] MEDS: MORPHINE SULFATE 2 MG/ML CPJ (NOT FOR IM USE) IV PRN (21:54)
[2020-09-03] VITALS: BP 149/89
[2020-09-03 04:00] VITALS: BP 133/62
[2020-09-03] MEDS: MORPHINE SULFATE 2 MG/ML CPJ (NOT FOR IM USE) IV PRN (05:28)
[2020-09-03] MEDS: LACTULOSE 20G/30ML UDC PO SCH ×3 (05:28→21:22)
[2020-09-03] MEDS: BLOOD SUGAR DIAGNOSTIC STRIP TEST SCH ×4 (05:51→21:23)
[2020-09-03] MEDS: INSULIN LISPRO 100 UNITS/ML SUBCUT SCH ×4 (05:51→21:23)
[2020-09-03 07:59] LABS: BASOPHILS % 0.6 % (0.0-2.0); EOSINOPHILS % 1.5 % (0.0-5.0); HEMATOCRIT. 39.4 % (36.0-48.0); HEMOGLOBIN. 13.3 g/dL (12.0-16.0); MEAN CORPUSCULAR HEMOGLOBIN 32.2 pg (28.0-32.0); MEAN CORPUSCULAR VOLUME 95.6 fL (81.0-99.0); MEAN PLATELET VOLUME 9.9 fl (7.4-10.4); MONOCYTES % 9.9 % (2.0-8.0); PLATELET 109 x1000/uL (130-400); RED BLOOD CELL COUNT 4.12 mill/uL (4.2-5.4); RED CELL DISTRIBUTION WIDTH 14.5 % (11.6-14.6)
[2020-09-03 08:08] LABS: CHLORIDE 105 mEq/L (98-107)
[2020-09-03 08:19] LABS: LDL CHOLESTEROL 121 mg/dL (5-100)
[2020-09-03 08:21] LABS: HDL CHOLESTEROL 60 mg/dL (40-59)
[2020-09-03] MEDS: ENOXAPARIN 30MG/0.3ML SYR SUBCUT SCH ×2 (09:40→21:22)
[2020-09-03 12:00] VITALS: BP 150/62
[2020-09-03 13:17] VITALS: BP 154/69
[2020-09-03 16:00] VITALS: BP 154/62
[2020-09-03 20:00] VITALS: BP 142/56
[2020-09-03] MEDS ORDERED: INSULIN LISPRO 100 UNITS/ML SUBCUT NR (23:00)
[2020-09-04] VITALS: BP 144/71
[2020-09-04] MEDS ORDERED: INSULIN GLARGINE UD 100 UNITS/ML SYR SUBCUT SCH ×2 (00:30→21:00)
[2020-09-04 04:00] VITALS: BP 146/61
[2020-09-04] MEDS: LACTULOSE 20G/30ML UDC PO SCH ×2 (05:21→13:31)
[2020-09-04] MEDS: BLOOD SUGAR DIAGNOSTIC STRIP TEST SCH ×2 (05:21→12:10)
[2020-09-04] MEDS: INSULIN LISPRO 100 UNITS/ML SUBCUT SCH ×4 (05:33→13:31)
[2020-09-04 06:33] LABS: BASOPHILS % 0.6 % (0.0-2.0); EOSINOPHILS % 1.8 % (0.0-5.0); HEMATOCRIT. 40.7 % (36.0-48.0); HEMOGLOBIN. 13.8 g/dL (12.0-16.0); MEAN CORPUSCULAR HEMOGLOBIN 32.7 pg (28.0-32.0); MEAN CORPUSCULAR VOLUME 96.3 fL (81.0-99.0); MEAN PLATELET VOLUME 9.9 fl (7.4-10.4); MONOCYTES % 8.7 % (2.0-8.0); NEUTROPHILS % 53.9 % (40.0-76.0); PLATELET 116 x1000/uL (130-400); RED BLOOD CELL COUNT 4.22 mill/uL (4.2-5.4); RED CELL DISTRIBUTION WIDTH 14.2 % (11.6-14.6)
[2020-09-04 06:38] LABS: CHLORIDE 105 mEq/L (98-107)
[2020-09-04 08:00] VITALS: BP 162/72
[2020-09-04] MEDS: ENOXAPARIN 30MG/0.3ML SYR SUBCUT SCH (09:29)
[2020-09-04 12:00] VITALS: BP 143/55
[2020-09-04] MEDS ORDERED: INSULIN GLARGINE UD 100 UNITS/ML SYR SUBCUT NR (14:30)
[2020-09-04 16:21] VITALS: BP 149/66
== END 2020-09-04 17:00 | disposition home or self-care (01) | DRG 279 ==
LOC: ER 14:38 → EDBEDREQ 18:22 → MICUSO 18:30 → ENRESERV 21:09 → CANRESERV 21:09 → 8WST 09-02 08:43 → MICUSO 09-02 09:25 → 8WST 09-02 10:25
PROVIDERS: ADMIT Internal Medicine; ATTEND Internal Medicine
DX: K72.00 Acute and subacute hepatic failure without coma (principal); K74.60 Unspecified cirrhosis of liver; E11.9 Type 2 diabetes mellitus without complications; I50.9 Heart failure, unspecified; I11.0 Hypertensive heart disease with heart failure; Z79.899 Other long term (current) drug therapy; Z79.4 Long term (current) use of insulin; Z88.0 Allergy status to penicillin; Z88.8 Allergy status to other drugs, medicaments and biological substances; Z88.5 Allergy status to narcotic agent; Z88.2 Allergy status to sulfonamides
CPT/HCPCS: 36415; 36600; 71045; 74176; 80048; 80053; 80061; 80076; 80305; 80307; 80320; 80329; 81003; 82140; 82375; 82550; 82805; 82962; 83036; 83605; 83880; 84145; 84443; 84484; 85025; 93005; 93923; 93970; 99285; C1893; J1200; J1650; J1815; J2270; G0480

== ENCOUNTER 2021-05-05 20:09 | Inpatient (IN) | payer MEDICAID ==
[~2021-05-05] VITALS: Ht 160 cm; Wt 116.6 kg
[~2021-05-05 20:09] MED LIST changes: -ATOR20TA PO
[2021-05-06 00:38] LABS: CLARITY URINE CLEAR (CLEAR); COLOR URINE YELLOW (YELLOW); KETONES URINE NEGATIVE (NEGATIVE); LEUKOCYTE ESTERASE URINE NEGATIVE (NEGATIVE); NITRITE URINE NEGATIVE (NEGATIVE); OCCULT BLOOD URINE 1+ (NEGATIVE); PH URINE 6.5 (4.5-8.0); PROTEIN URINE NEGATIVE (NEGATIVE); SPECIFIC GRAVITY URINE 1.013 (1.005-1.030); UROBILINOGEN URINE 0.2 E.U./dL (0.2-1.0)
[2021-05-06 00:43] LABS: CHLORIDE 105 mEq/L (98-107)
[2021-05-06 00:44] LABS: BASOPHILS % 0.7 % (0.0-2.0); EOSINOPHILS % 6.1 % (0.0-5.0); HEMATOCRIT. 33.8 % (36.0-48.0); HEMOGLOBIN. 11.5 g/dL (12.0-16.0); LYMPHOCYTES % 37.1 % (20.0-50.0); MEAN CORPUSCULAR HEMOGLOBIN 30.9 pg (28.0-32.0); MEAN CORPUSCULAR VOLUME 91.2 fL (81.0-99.0); MEAN PLATELET VOLUME 9.5 fl (7.4-10.4); NEUTROPHILS % 44.1 % (40.0-76.0); PLATELET 97 x1000/uL (130-400); RED BLOOD CELL COUNT 3.71 mill/uL (4.2-5.4); RED CELL DISTRIBUTION WIDTH 15.3 % (11.6-14.6)
[2021-05-06 01:12] LABS: INR 1.2; PROTHROMBIN TIME 12.9 sec (9.6-11.0)
[2021-05-06] MEDS ORDERED: ONDANSETRON HCL 4MG/2ML INJ IV PRN (10:00)
[2021-05-06] MEDS ORDERED: DEXTROSE 50% WATER 50ML SYRINGE IV PRN (10:00)
[2021-05-06 10:45] VITALS: BP 109/62
[2021-05-06 11:00] VITALS: BP 109/60
[2021-05-06 12:00] VITALS: BP 110/65
[2021-05-06] MEDS: BLOOD SUGAR DIAGNOSTIC STRIP TEST SCH ×3 (12:05→20:57)
[2021-05-06] MEDS ORDERED: TRAMADOL 50MG TABLET PO PRN (12:30)
[2021-05-06] MEDS: INSULIN LISPRO 100 UNITS/ML SUBCUT SCH ×3 (13:32→21:26)
[2021-05-06] MEDS ORDERED: PNEUMOCOCCAL 23-VAL P-SAC VAC 0.5 ML IM ONE (15:00)
[2021-05-06 16:00] VITALS: BP 145/67
[2021-05-06] MEDS ORDERED: LACTULOSE 20G/30ML UDC PO NR (16:15)
[2021-05-06 18:26] LABS: INR 1.3; PARTIAL THROMBOPLASTIN TIME 31.1 sec (23.4-31.0); PROTHROMBIN TIME 13.5 sec (9.6-11.0)
[2021-05-06 19:36] LABS: HEPATITIS B SURFACE AB < 3.1 mIU/mL
[2021-05-06 20:45] VITALS: BP 144/78
[2021-05-07] VITALS: BP 133/54
[2021-05-07 04:00] VITALS: BP 133/59
[2021-05-07] MEDS: BLOOD SUGAR DIAGNOSTIC STRIP TEST SCH ×4 (06:21→20:14)
[2021-05-07] MEDS: PANTOPRAZOLE 40MG DR TABLET PO SCH (06:40)
[2021-05-07] MEDS: LORATADINE 10MG TABLET PO SCH ×2 (06:40→09:00)
[2021-05-07 08:30] VITALS: BP 123/54
[2021-05-07] MEDS: INSULIN LISPRO 100 UNITS/ML SUBCUT SCH ×4 (08:31→20:29)
[2021-05-07] MEDS ORDERED: MORPHINE SULFATE 2 MG/ML CPJ (NOT FOR IM USE) IV NR (11:10)
[2021-05-07] MEDS ORDERED: NALOXONE HCL 0.4MG/ML VIAL IV PRN ×2 (11:30→19:15)
[2021-05-07 12:14] VITALS: BP 150/63
[2021-05-07] MEDS: LACTULOSE 20G/30ML UDC PO SCH ×2 (13:20→22:27)
[2021-05-07 16:19] VITALS: BP 153/61
[2021-05-07 16:57] LABS: EOSINOPHILS % 5.2 % (0.0-5.0); HEMATOCRIT. 31.8 % (36.0-48.0); HEMOGLOBIN. 10.6 g/dL (12.0-16.0); LYMPHOCYTES % 37.5 % (20.0-50.0); MEAN CORPUSCULAR HEMOGLOBIN 30.4 pg (28.0-32.0); MEAN PLATELET VOLUME 9.6 fl (7.4-10.4); MONOCYTES % 12.3 % (2.0-8.0); PLATELET 91 x1000/uL (130-400); RED CELL DISTRIBUTION WIDTH 15.4 % (11.6-14.6)
[2021-05-07 17:20] LABS: CHLORIDE 104 mEq/L (98-107)
[2021-05-07] MEDS ORDERED: BISACODYL 10MG SUPP PR NR (19:15)
[2021-05-07] MEDS ORDERED: BISACODYL 5MG TABLET PO NR (19:15)
[2021-05-07 20:00] VITALS: BP 170/60
[2021-05-07] MEDS ORDERED: CLONIDINE 0.1MG TABLET PO PRN (20:00)
[2021-05-07] MEDS: AMLODIPINE 10MG TABLET PO SCH (20:13)
[2021-05-07] MEDS: METOCLOPRAMIDE HCL 10MG/2ML VIAL IV SCH ×2 (20:13→23:31)
[2021-05-07] MEDS: LISINOPRIL 20MG TABLET PO SCH (20:13)
[2021-05-07] MEDS: SORBITOL 70% SOLN 30ML PO SCH ×2 (20:14→23:31)
[2021-05-07] MEDS ORDERED: DEXT 5%/0.45% NACL KCL 20MEQ/L 1,000 ML IV SCH (21:00)
[2021-05-08] VITALS (7 sets, daily range): BP systolic 129–158; BP diastolic 49–69
[2021-05-08] MEDS: SORBITOL 70% SOLN 30ML PO SCH ×3 (04:27→12:00)
[2021-05-08] MEDS: METOCLOPRAMIDE HCL 10MG/2ML VIAL IV SCH ×3 (04:27→12:10)
[2021-05-08] MEDS: PANTOPRAZOLE 40MG DR TABLET PO SCH (06:21)
[2021-05-08] MEDS: LACTULOSE 20G/30ML UDC PO SCH ×3 (06:21→21:25)
[2021-05-08] MEDS: BLOOD SUGAR DIAGNOSTIC STRIP TEST SCH ×4 (06:21→21:18)
[2021-05-08] MEDS: INSULIN LISPRO 100 UNITS/ML SUBCUT SCH ×6 (06:40→21:27)
[2021-05-08 06:47] LABS: BASOPHILS % 0.7 % (0.0-2.0); EOSINOPHILS % 0.9 % (0.0-5.0); HEMATOCRIT. 37.1 % (36.0-48.0); HEMOGLOBIN. 12.3 g/dL (12.0-16.0); MEAN CORPUSCULAR HEMOGLOBIN 30.9 pg (28.0-32.0); MEAN CORPUSCULAR VOLUME 93.2 fL (81.0-99.0); MEAN PLATELET VOLUME 9.9 fl (7.4-10.4); MONOCYTES % 13.9 % (2.0-8.0); NEUTROPHILS % 62.5 % (40.0-76.0); PLATELET 116 x1000/uL (130-400); RED BLOOD CELL COUNT 3.98 mill/uL (4.2-5.4); RED CELL DISTRIBUTION WIDTH 15.7 % (11.6-14.6)
[2021-05-08 06:51] LABS: CHLORIDE 108 mEq/L (98-107)
[2021-05-08 06:54] LABS: INR 1.2; PROTHROMBIN TIME 13.2 sec (9.6-11.0)
[2021-05-08] MEDS ORDERED: SODIUM CHLORIDE 0.45% 1,000 ML IV SCH (08:15)
[2021-05-08] MEDS: BISACODYL 5MG TABLET PO SCH ×2 (09:13→12:00)
[2021-05-08] MEDS: AMLODIPINE 10MG TABLET PO SCH (09:14)
[2021-05-08] MEDS: LORATADINE 10MG TABLET PO SCH (09:14)
[2021-05-08] MEDS: LISINOPRIL 20MG TABLET PO SCH (09:14)
[2021-05-08] MEDS ORDERED: MINERAL OIL ENEMA 133ML PR NR (09:30)
[2021-05-08] MEDS: MINERAL OIL ENEMA 133ML PR NR ×3 (10:30→10:49)
[2021-05-08] MEDS ORDERED: MIDAZOLAM HCL 5 MG/5 ML VIAL ONE (12:26)
[2021-05-08] MEDS ORDERED: FENTANYL CITRATE/PF 50MCG/ML 2ML VIAL ONE (12:26)
[2021-05-08] MEDS ORDERED: MIDAZOLAM HCL 5 MG/5 ML VIAL IV PRN (12:40)
[2021-05-08] MEDS ORDERED: FENTANYL CITRATE/PF 50MCG/ML 2ML VIAL IV PRN (12:41)
[2021-05-08] MEDS: PROPRANOLOL HCL 10MG TABLET PO SCH (21:25)
[2021-05-08] MEDS ORDERED: INSULIN GLARGINE UD 100 UNITS/ML SYR SUBCUT SCH (22:00)
[2021-05-09 03:56] VITALS: BP 131/57
[2021-05-09 04:12] LABS: ANA IFA Negative (.)
[2021-05-09] MEDS: PANTOPRAZOLE 40MG DR TABLET PO SCH (06:23)
[2021-05-09] MEDS: BLOOD SUGAR DIAGNOSTIC STRIP TEST SCH ×2 (06:23→12:16)
[2021-05-09] MEDS: LACTULOSE 20G/30ML UDC PO SCH ×2 (06:23→14:44)
[2021-05-09 06:49] LABS: BASOPHILS % 0.4 % (0.0-2.0); EOSINOPHILS % 2.6 % (0.0-5.0); HEMATOCRIT. 38.7 % (36.0-48.0); HEMOGLOBIN. 12.7 g/dL (12.0-16.0); LYMPHOCYTES % 27.6 % (20.0-50.0); MEAN CORPUSCULAR HEMOGLOBIN 30.6 pg (28.0-32.0); MEAN CORPUSCULAR VOLUME 93.6 fL (81.0-99.0); MONOCYTES % 7.6 % (2.0-8.0); NEUTROPHILS % 61.8 % (40.0-76.0); PLATELET 116 x1000/uL (130-400); RED BLOOD CELL COUNT 4.14 mill/uL (4.2-5.4)
[2021-05-09 07:07] LABS: CHLORIDE 109 mEq/L (98-107)
[2021-05-09 08:00] VITALS: BP 125/59
[2021-05-09] MEDS: AMLODIPINE 10MG TABLET PO SCH (09:00)
[2021-05-09] MEDS: PROPRANOLOL HCL 10MG TABLET PO SCH (09:00)
[2021-05-09] MEDS: LORATADINE 10MG TABLET PO SCH (09:00)
[2021-05-09] MEDS: LISINOPRIL 20MG TABLET PO SCH (09:00)
[2021-05-09] MEDS: INSULIN LISPRO 100 UNITS/ML SUBCUT SCH ×4 (09:02→14:39)
[2021-05-09 12:00] VITALS: BP 120/52
[2021-05-09] MEDS ORDERED: LISI20TA31 PO (13:28)
[2021-05-09 15:18] VITALS: BP 120/52
[2021-05-11] MEDS ORDERED: GABA-290 PO (16:34)
[2021-05-11] MEDS ORDERED: METF-416 PO (16:38)
== END 2021-05-09 17:26 | disposition home or self-care (01) | DRG 244 ==
LOC: ER 20:09 → 6WST 05-06 04:44 → ENRESERV 05-06 07:21
PROVIDERS: ADMIT Internal Medicine; ATTEND Internal Medicine
PROC: 0DB78ZX Excision of Stomach, Pylorus, Via Natural or Artificial Opening Endoscopic, Diagnostic (ICD-10-PCS; principal; 2021-05-08)
PROC: 06L38CZ Occlusion of Esophageal Vein with Extraluminal Device, Via Natural or Artificial Opening Endoscopic (ICD-10-PCS; 2021-05-08)
PROC: 0DJD8ZZ Inspection of Lower Intestinal Tract, Via Natural or Artificial Opening Endoscopic (ICD-10-PCS; 2021-05-08)
DX: K57.31 Diverticulosis of large intestine without perforation or abscess with bleeding (principal); I50.33 Acute on chronic diastolic (congestive) heart failure; E43 Unspecified severe protein-calorie malnutrition; I85.00 Esophageal varices without bleeding; D68.9 Coagulation defect, unspecified; D69.6 Thrombocytopenia, unspecified; K72.90 Hepatic failure, unspecified without coma; I11.0 Hypertensive heart disease with heart failure; K64.8 Other hemorrhoids; K31.89 Other diseases of stomach and duodenum; K76.6 Portal hypertension; K74.60 Unspecified cirrhosis of liver; D64.9 Anemia, unspecified; E11.9 Type 2 diabetes mellitus without complications; E66.9 Obesity, unspecified; E78.5 Hyperlipidemia, unspecified; K76.0 Fatty (change of) liver, not elsewhere classified; D72.819 Decreased white blood cell count, unspecified; Z20.822 Contact with and (suspected) exposure to COVID-19; Z88.6 Allergy status to analgesic agent; Z88.5 Allergy status to narcotic agent; Z88.0 Allergy status to penicillin; Z88.2 Allergy status to sulfonamides; Z88.8 Allergy status to other drugs, medicaments and biological substances; Z91.041 Radiographic dye allergy status; Z79.4 Long term (current) use of insulin; Z79.899 Other long term (current) drug therapy; Z68.42 Body mass index [BMI] 45.0-49.9, adult; Z90.49 Acquired absence of other specified parts of digestive tract
CPT/HCPCS: 36415; 71045; 74176; 76700; 80048; 80053; 80076; 81003; 82105; 82140; 82248; 82378; 82962; 82977; 83615; 83735; 84443; 84484; 85025; 85044; 86256; 86301; 86705; 86706; 86803; 87426; 88305; 90732; 93005; 93306; 93976; 97162; 97166; 99152; 99285; J1815; J2250; J2270; J2765; J3010; G0500

== ENCOUNTER 2021-08-24 11:13 | Emergency (ER) | payer MEDICAID ==
[~2021-08-24] VITALS: Ht 165.1 cm; Wt 114.0 kg
[~2021-08-24 11:13] MED LIST changes: -DOCU-138 PO; -ESCI20TA37 MT; -ESOM20CA37 PO; +LISI20TA31 PO; +METF-416 PO; -RIFA550T PO
[2021-08-24] MEDS ORDERED: SODIUM CHLORIDE 0.9% 1,000 ML IV ONE (11:45)
[2021-08-24 12:11] LABS: BASOPHILS % 0.7 % (0.0-2.0); EOSINOPHILS % 5.1 % (0.0-5.0); HEMATOCRIT. 32.1 % (36.0-48.0); HEMOGLOBIN. 10.5 g/dL (12.0-16.0); LYMPHOCYTES % 27.7 % (20.0-50.0); MEAN CORPUSCULAR HEMOGLOBIN 27.3 pg (28.0-32.0); MEAN CORPUSCULAR VOLUME 83.1 fL (81.0-99.0); MEAN PLATELET VOLUME 9.1 fl (7.4-10.4); MONOCYTES % 9.2 % (2.0-8.0); NEUTROPHILS % 57.3 % (40.0-76.0); PLATELET 108 x1000/uL (130-400); RED BLOOD CELL COUNT 3.86 mill/uL (4.2-5.4); RED CELL DISTRIBUTION WIDTH 16.8 % (11.6-14.6)
[2021-08-24 12:23] LABS: CHLORIDE 101 mEq/L (98-107)
[2021-08-24 12:24] LABS: INR 1.2; PROTHROMBIN TIME 12.7 sec (9.6-11.0)
[2021-08-24 12:32] LABS: BETA HYDROXYBUTYRATE 0.2 mMol/L (0.0-0.3)
[2021-08-24] MEDS ORDERED: LEVOFLOXACIN 750MG PREMIX 150 ML IV ONE (14:15)
[2021-08-24] MEDS ORDERED: METRONIDAZOLE 500 MG PREMIX 100 ML IV ONE (14:15)
[2021-08-24 15:35] LABS: CLARITY URINE CLEAR (CLEAR); COLOR URINE YELLOW (YELLOW); KETONES URINE NEGATIVE (NEGATIVE); LEUKOCYTE ESTERASE URINE TRACE (NEGATIVE); NITRITE URINE NEGATIVE (NEGATIVE); OCCULT BLOOD URINE TRACE (NEGATIVE); PROTEIN URINE TRACE (NEGATIVE); SPECIFIC GRAVITY URINE 1.027 (1.005-1.030); UROBILINOGEN URINE 0.2 E.U./dL (0.2-1.0)
[2021-08-24] MEDS ORDERED: IBUPROFEN 400MG TABLET PO ONE (20:30)
[2021-08-24 22:26] VITALS: BP 157/74
== END 2021-08-24 22:50 | disposition short-term general hospital (02) ==
LOC: ER 11:13
DX: K52.9 Noninfective gastroenteritis and colitis, unspecified (principal); E11.65 Type 2 diabetes mellitus with hyperglycemia; I10 Essential (primary) hypertension; K74.60 Unspecified cirrhosis of liver; R18.8 Other ascites; D64.9 Anemia, unspecified; Z90.49 Acquired absence of other specified parts of digestive tract; Z79.84 Long term (current) use of oral hypoglycemic drugs; Z88.5 Allergy status to narcotic agent; Z88.0 Allergy status to penicillin; Z88.2 Allergy status to sulfonamides; Z88.6 Allergy status to analgesic agent; Z91.041 Radiographic dye allergy status; W01.0XXA Fall on same level from slipping, tripping and stumbling without subsequent striking against object, initial encounter; Y93.89 Activity, other specified; Y92.018 Other place in single-family (private) house as the place of occurrence of the external cause; Z20.822 Contact with and (suspected) exposure to COVID-19
CPT/HCPCS: 36415; 71045; 73610; 74176; 80053; 81003; 82010; 82962; 83690; 83880; 85025; 85610; 86850; 86900; 86901; 87040; 87077; 87086; 87186; 87426; 93005; 96361; 96365; 96368; 99285; J1956; J3490; J7030

== ENCOUNTER 2021-08-31 11:31 | Inpatient (IN) | payer MEDICAID ==
[~2021-08-31] VITALS: Ht 160 cm; Wt 124.8 kg
[2021-08-31] MEDS ORDERED: DEXTROSE 50% WATER 50ML SYRINGE IV ONE (12:45)
[2021-08-31] MEDS ORDERED: SODIUM CHLORIDE 23.4% 77 MEQ in DEXT 10% WATER 1,000 ML IV NR (13:00)
[2021-08-31 13:12] LABS: BASOPHILS % 0.9 % (0.0-2.0); HEMOGLOBIN. 10.6 g/dL (12.0-16.0); LYMPHOCYTES % 26.1 % (20.0-50.0); MEAN CORPUSCULAR HEMOGLOBIN 27.6 pg (28.0-32.0); MEAN CORPUSCULAR VOLUME 83.7 fL (81.0-99.0); MEAN PLATELET VOLUME 8.5 fl (7.4-10.4); MONOCYTES % 8.5 % (2.0-8.0); NEUTROPHILS % 58.5 % (40.0-76.0); PLATELET 118 x1000/uL (130-400); RED BLOOD CELL COUNT 3.83 mill/uL (4.2-5.4); RED CELL DISTRIBUTION WIDTH 17.9 % (11.6-14.6)
[2021-08-31 13:13] LABS: CHLORIDE 113 mEq/L (98-107)
[2021-08-31 17:36] LABS: CLARITY URINE CLEAR (CLEAR); COLOR URINE YELLOW (YELLOW); KETONES URINE NEGATIVE (NEGATIVE); LEUKOCYTE ESTERASE URINE NEGATIVE (NEGATIVE); NITRITE URINE NEGATIVE (NEGATIVE); OCCULT BLOOD URINE NEGATIVE (NEGATIVE); PH URINE 5.5 (4.5-8.0); PROTEIN URINE NEGATIVE (NEGATIVE); SPECIFIC GRAVITY URINE 1.009 (1.005-1.030); UROBILINOGEN URINE 0.2 E.U./dL (0.2-1.0)
[2021-08-31] MEDS ORDERED: IPRATROPIUM/ALBUTEROL 0.5-3(2.5)MG/3ML NEB HHN PRN (18:45)
[2021-08-31] MEDS ORDERED: ACETAMINOPHEN 325MG TABLET PO PRN (18:45)
[2021-08-31] MEDS ORDERED: ONDANSETRON HCL 4MG/2ML INJ IV PRN (18:45)
[2021-08-31] MEDS ORDERED: CLONIDINE 0.1MG TABLET PO PRN (18:45)
[2021-08-31] MEDS ORDERED: HYDROCODONE/ACETAMINOPHEN 5/325MG TABLET PO PRN (18:45)
[2021-08-31] MEDS ORDERED: MAGNESIUM/ALUMINUM HYDROXIDE/SIMETHICONE 30ML UDC PO PRN (18:45)
[2021-08-31 21:55] VITALS: BP 196/91
[2021-08-31 23:14] VITALS: BP 126/58
[2021-08-31 23:25] LABS: CREATINE KINASE 93 IU/L (26-192)
[2021-08-31 23:26] LABS: CREATINE KINASE MB FRACTION 1.7 ng/mL (0.5-3.6)
[2021-09-01] VITALS (10 sets, daily range): BP systolic 99–142; BP diastolic 41–72
[2021-09-01] MEDS ORDERED: DEXTROSE 50% WATER 50ML SYRINGE IV PRN (03:00)
[2021-09-01 03:24] LABS: *AMPHETAMINES SCREEN URINE NEGATIVE (NEGATIVE); *BARBITURATES SCREEN URINE NEGATIVE (NEGATIVE); *BENZODIAZEPINES SCREEN URINE NEGATIVE (NEGATIVE); *COCAINE SCREEN URINE NEGATIVE (NEGATIVE)
[2021-09-01 03:25] LABS: CANNABINOID URINE SCREEN NEGATIVE (NEGATIVE); METHADONE URINE SCREEN NEGATIVE (NEGATIVE); OPIATES URINE SCREEN NEGATIVE (NEGATIVE); PHENCYCLIDINE URINE SCREEN NEGATIVE (NEGATIVE)
[2021-09-01] MEDS: BLOOD SUGAR DIAGNOSTIC STRIP TEST SCH ×3 (06:01→16:55)
[2021-09-01 06:38] LABS: BASOPHILS % 0.9 % (0.0-2.0); EOSINOPHILS % 6.2 % (0.0-5.0); HEMATOCRIT. 31.7 % (36.0-48.0); HEMOGLOBIN. 10.5 g/dL (12.0-16.0); LYMPHOCYTES % 43.1 % (20.0-50.0); MEAN CORPUSCULAR HEMOGLOBIN 27.9 pg (28.0-32.0); MEAN PLATELET VOLUME 9.1 fl (7.4-10.4); MONOCYTES % 9.5 % (2.0-8.0); NEUTROPHILS % 40.3 % (40.0-76.0); PLATELET 101 x1000/uL (130-400); RED BLOOD CELL COUNT 3.77 mill/uL (4.2-5.4); RED CELL DISTRIBUTION WIDTH 17.8 % (11.6-14.6)
[2021-09-01 07:19] LABS: CREATINE KINASE 82 IU/L (26-192)
[2021-09-01] MEDS: INSULIN LISPRO 100 UNITS/ML SUBCUT SCH ×3 (07:20→17:20)
[2021-09-01 07:22] LABS: CHLORIDE 111 mEq/L (98-107)
[2021-09-01 07:35] LABS: LDL CHOLESTEROL 65 mg/dL (5-100)
[2021-09-01 07:37] LABS: HDL CHOLESTEROL 29 mg/dL (40-59)
== END 2021-09-01 19:00 | disposition home health service (06) | DRG 420 ==
LOC: ER 11:31 → 3WST 16:15 → EDBEDREQ 16:16 → EDBEDREQSVC 16:16 → EDBEDREQTM 16:16 → ENRESERV 20:19 → CANBEDREQ 09-01 18:58
PROVIDERS: ADMIT Internal Medicine; ATTEND Internal Medicine
DX: E11.649 Type 2 diabetes mellitus with hypoglycemia without coma (principal); G93.40 Encephalopathy, unspecified; R18.8 Other ascites; D69.6 Thrombocytopenia, unspecified; E72.20 Disorder of urea cycle metabolism, unspecified; E88.09 Other disorders of plasma-protein metabolism, not elsewhere classified; R16.2 Hepatomegaly with splenomegaly, not elsewhere classified; I50.32 Chronic diastolic (congestive) heart failure; I11.0 Hypertensive heart disease with heart failure; E66.01 Morbid (severe) obesity due to excess calories; D64.9 Anemia, unspecified; G89.29 Other chronic pain; Z20.822 Contact with and (suspected) exposure to COVID-19; K74.60 Unspecified cirrhosis of liver; K64.8 Other hemorrhoids; E78.5 Hyperlipidemia, unspecified; Z79.4 Long term (current) use of insulin; Z90.49 Acquired absence of other specified parts of digestive tract; Z88.0 Allergy status to penicillin; Z88.2 Allergy status to sulfonamides; Z88.6 Allergy status to analgesic agent; Z91.041 Radiographic dye allergy status; Z79.899 Other long term (current) drug therapy; Z71.3 Dietary counseling and surveillance; Z68.42 Body mass index [BMI] 45.0-49.9, adult
CPT/HCPCS: 36415; 71045; 74176; 80053; 80061; 80305; 81003; 82533; 82550; 82553; 82962; 83036; 83735; 84443; 84484; 85025; 87426; 93970; 99285; J1815; J7131

== ENCOUNTER 2022-03-12 17:30 | Emergency (ER) | payer MEDICAID ==
[~2022-03-12] VITALS: Ht 152.4 cm; Wt 108.8 kg
[~2022-03-12 17:30] MED LIST changes: +CIPR500T5 MT; -LANC-335; +LANTUSUD SUBCUT; +LIRA0.6P SQ; -TOPI25CA5 MT; +TOPI25CA6 MT; +VITAMIN D PO
[2022-03-12 22:32] LABS: CLARITY URINE CLEAR (CLEAR); COLOR URINE YELLOW (YELLOW); KETONES URINE NEGATIVE (NEGATIVE); LEUKOCYTE ESTERASE URINE 1+ (NEGATIVE); NITRITE URINE NEGATIVE (NEGATIVE); OCCULT BLOOD URINE TRACE (NEGATIVE); PH URINE 7.5 (4.5-8.0); PROTEIN URINE NEGATIVE (NEGATIVE); UROBILINOGEN URINE 0.2 E.U./dL (0.2-1.0)
[2022-03-12 22:54] LABS: *AMPHETAMINES SCREEN URINE NEGATIVE (NEGATIVE); *BARBITURATES SCREEN URINE NEGATIVE (NEGATIVE); *BENZODIAZEPINES SCREEN URINE NEGATIVE (NEGATIVE); *COCAINE SCREEN URINE NEGATIVE (NEGATIVE); CANNABINOID URINE SCREEN NEGATIVE (NEGATIVE); METHADONE URINE SCREEN NEGATIVE (NEGATIVE); OPIATES URINE SCREEN NEGATIVE (NEGATIVE); PHENCYCLIDINE URINE SCREEN NEGATIVE (NEGATIVE)
[2022-03-12 23:34] LABS: EOSINOPHILS % 5.8 % (0.0-5.0); HEMATOCRIT. 38.6 % (36.0-48.0); HEMOGLOBIN. 13.4 g/dL (12.0-16.0); LYMPHOCYTES % 34.3 % (20.0-50.0); MEAN CORPUSCULAR HEMOGLOBIN 33.2 pg (28.0-32.0); MEAN PLATELET VOLUME 9.7 fl (7.4-10.4); MONOCYTES % 9.5 % (2.0-8.0); NEUTROPHILS % 49.4 % (40.0-76.0); PLATELET 107 x1000/uL (130-400); RED BLOOD CELL COUNT 4.02 mill/uL (4.2-5.4); RED CELL DISTRIBUTION WIDTH 14.3 % (11.6-14.6)
[2022-03-12 23:37] LABS: CHLORIDE 104 mEq/L (98-107)
[2022-03-12 23:41] LABS: INR 1.2; PROTHROMBIN TIME 12.4 sec (9.6-11.0)
[2022-03-12 23:48] LABS: B-HCG QUANTITATIVE 2 mIU/mL (<3)
[2022-03-13] MEDS ORDERED: NITR-87 MT (00:11)
[2022-03-13] MEDS ORDERED: NITROFURANTOIN 100MG M/M CAPSULE PO ONE (00:15)
[2022-03-13 00:20] VITALS: BP 124/60
== END 2022-03-13 00:50 | disposition home or self-care (01) ==
LOC: ER 17:30
DX: N39.0 Urinary tract infection, site not specified (principal); D25.9 Leiomyoma of uterus, unspecified; G89.29 Other chronic pain; M79.672 Pain in left foot; E11.9 Type 2 diabetes mellitus without complications; I10 Essential (primary) hypertension; K74.60 Unspecified cirrhosis of liver; Z90.49 Acquired absence of other specified parts of digestive tract; Z98.84 Bariatric surgery status; Z87.891 Personal history of nicotine dependence; Z79.4 Long term (current) use of insulin; Z88.6 Allergy status to analgesic agent; Z88.5 Allergy status to narcotic agent; Z88.2 Allergy status to sulfonamides; Z88.0 Allergy status to penicillin
CPT/HCPCS: 36415; 73630; 76830; 76856; 80053; 80305; 81003; 84702; 85025; 86850; 86900; 99285

== ENCOUNTER 2022-03-15 13:36 | Emergency (ER) | payer MEDICAID ==
[~2022-03-15] VITALS: Ht 157.5 cm; Wt 91.0 kg
[~2022-03-15 13:36] MED LIST changes: +NITR-87 MT
[2022-03-15] MEDS ORDERED: SODIUM CHLORIDE 0.9% 1,000 ML IV ONE ×2 (14:00→15:45)
[2022-03-15 14:31] LABS: BASOPHILS % 0.6 % (0.0-2.0); EOSINOPHILS % 3.3 % (0.0-5.0); HEMOGLOBIN. 12.3 g/dL (12.0-16.0); LYMPHOCYTES % 24.5 % (20.0-50.0); MEAN CORPUSCULAR HEMOGLOBIN 32.9 pg (28.0-32.0); MEAN CORPUSCULAR VOLUME 96.3 fL (81.0-99.0); MEAN PLATELET VOLUME 9.9 fl (7.4-10.4); MONOCYTES % 10.7 % (2.0-8.0); NEUTROPHILS % 60.9 % (40.0-76.0); PLATELET 108 x1000/uL (130-400); RED BLOOD CELL COUNT 3.74 mill/uL (4.2-5.4); RED CELL DISTRIBUTION WIDTH 13.9 % (11.6-14.6)
[2022-03-15 14:40] LABS: CHLORIDE 103 mEq/L (98-107)
[2022-03-15 14:46] LABS: ETHANOL BLOOD < 10 mg/dL
[2022-03-15] MEDS ORDERED: INSULIN REGULAR (HUMULIN R) 300UNITS/3ML VIAL IV ONE (15:45)
[2022-03-15] MEDS ORDERED: SODIUM POLYSTYRENE SULFONATE 15 G/60 ML BOT PO ONE (15:45)
[2022-03-15 15:57] LABS: CLARITY URINE CLEAR (CLEAR); COLOR URINE YELLOW (YELLOW); KETONES URINE NEGATIVE (NEGATIVE); LEUKOCYTE ESTERASE URINE NEGATIVE (NEGATIVE); NITRITE URINE NEGATIVE (NEGATIVE); OCCULT BLOOD URINE NEGATIVE (NEGATIVE); PROTEIN URINE NEGATIVE (NEGATIVE); SPECIFIC GRAVITY URINE 1.023 (1.005-1.030); UROBILINOGEN URINE 0.2 E.U./dL (0.2-1.0)
[2022-03-15 16:23] LABS: *AMPHETAMINES SCREEN URINE NEGATIVE (NEGATIVE); *BARBITURATES SCREEN URINE NEGATIVE (NEGATIVE); *BENZODIAZEPINES SCREEN URINE NEGATIVE (NEGATIVE); *COCAINE SCREEN URINE NEGATIVE (NEGATIVE); CANNABINOID URINE SCREEN NEGATIVE (NEGATIVE); METHADONE URINE SCREEN NEGATIVE (NEGATIVE); OPIATES URINE SCREEN NEGATIVE (NEGATIVE); PHENCYCLIDINE URINE SCREEN NEGATIVE (NEGATIVE)
[2022-03-15] MEDS ORDERED: LACTULOSE 20G/30ML UDC PO ONE (17:15)
[2022-03-15 19:09] LABS: CHLORIDE 110 mEq/L (98-107)
[2022-03-15 23:34] VITALS: BP 154/73
== END 2022-03-16 00:55 | disposition short-term general hospital (02) ==
LOC: ER 13:36 → CANBEDREQ 03-16 05:57
DX: K72.90 Hepatic failure, unspecified without coma (principal); E11.65 Type 2 diabetes mellitus with hyperglycemia; E87.5 Hyperkalemia; Z20.822 Contact with and (suspected) exposure to COVID-19; I10 Essential (primary) hypertension; Z90.49 Acquired absence of other specified parts of digestive tract
CPT/HCPCS: 36415; 70450; 71045; 80048; 80053; 80305; 80320; 81003; 82140; 82962; 84484; 85025; 87426; 93005; 96361; 96374; 99291; C9803; J1815; J7030; A4315; G0480

== ENCOUNTER 2022-03-26 16:57 | Emergency (ER) | payer MEDICAID ==
[~2022-03-26] VITALS: Ht 160 cm; Wt 108.0 kg
[2022-03-26 17:10] VITALS: BP 120/57
[2022-03-27] MEDS ORDERED: CYCLOBENZAPRINE 10MG TABLET PO ONE (02:00)
[2022-03-27 02:40] LABS: BASOPHILS % 0.8 % (0.0-2.0); EOSINOPHILS % 5.9 % (0.0-5.0); HEMATOCRIT. 34.7 % (36.0-48.0); HEMOGLOBIN. 12.2 g/dL (12.0-16.0); LYMPHOCYTES % 37.3 % (20.0-50.0); MEAN CORPUSCULAR HEMOGLOBIN 33.4 pg (28.0-32.0); MEAN PLATELET VOLUME 9.6 fl (7.4-10.4); MONOCYTES % 9.8 % (2.0-8.0); NEUTROPHILS % 46.2 % (40.0-76.0); PLATELET 95 x1000/uL (130-400); RED BLOOD CELL COUNT 3.66 mill/uL (4.2-5.4); RED CELL DISTRIBUTION WIDTH 14.1 % (11.6-14.6)
[2022-03-27 02:41] LABS: CLARITY URINE CLEAR (CLEAR); COLOR URINE YELLOW (YELLOW); KETONES URINE NEGATIVE (NEGATIVE); LEUKOCYTE ESTERASE URINE NEGATIVE (NEGATIVE); NITRITE URINE NEGATIVE (NEGATIVE); OCCULT BLOOD URINE TRACE (NEGATIVE); PH URINE 7.5 (4.5-8.0); PROTEIN URINE NEGATIVE (NEGATIVE); UROBILINOGEN URINE 0.2 E.U./dL (0.2-1.0)
[2022-03-27 02:48] LABS: CHLORIDE 105 mEq/L (98-107)
[2022-03-27] MEDS ORDERED: SODIUM POLYSTYRENE SULFONATE 15 G/60 ML BOT PO ONE (03:30)
[2022-03-27] MEDS ORDERED: FLUCONAZOLE 100MG TABLET PO ONE (03:45)
[2022-03-27] MEDS ORDERED: FLUCONAZOLE 150MG TABLET PO NR (04:00)
[2022-03-27] MEDS ORDERED: FAMOTIDINE 20MG TABLET PO ONE (05:45)
== END 2022-03-27 06:21 | disposition home or self-care (01) ==
LOC: ER 16:57
DX: S20.213A Contusion of bilateral front wall of thorax, initial encounter (principal); E87.5 Hyperkalemia; I10 Essential (primary) hypertension; E11.9 Type 2 diabetes mellitus without complications; Z88.2 Allergy status to sulfonamides; Z88.5 Allergy status to narcotic agent; Z79.899 Other long term (current) drug therapy; Z98.890 Other specified postprocedural states; Z88.0 Allergy status to penicillin; Z88.6 Allergy status to analgesic agent; Z90.49 Acquired absence of other specified parts of digestive tract; W01.0XXA Fall on same level from slipping, tripping and stumbling without subsequent striking against object, initial encounter; Y93.89 Activity, other specified; Y92.89 Other specified places as the place of occurrence of the external cause; Y99.8 Other external cause status
CPT/HCPCS: 36415; 71111; 80053; 81003; 85025; 93005; 99285

== ENCOUNTER 2022-07-29 11:59 | Inpatient (IN) | payer MEDICAID ==
[~2022-07-29] VITALS: Ht 160 cm; Wt 113.1 kg
[~2022-07-29 11:59] MED LIST changes: -CIPR500T5 MT; -GABA-290 PO; -LISI20TA31 PO; -NITR-87 MT; +PANT40TA51 PO; -POTA8TAB8 MT; -PROP10TA10 PO; +RIFA550T PO
[2022-07-29 13:40] LABS: BASOPHILS % 0.9 % (0.0-2.0); EOSINOPHILS % 6.9 % (0.0-5.0); HEMATOCRIT. 36.5 % (36.0-48.0); LYMPHOCYTES % 25.4 % (20.0-50.0); MEAN CORPUSCULAR HEMOGLOBIN 28.5 pg (28.0-32.0); MEAN CORPUSCULAR VOLUME 86.3 fL (81.0-99.0); MEAN PLATELET VOLUME 9.5 fl (7.4-10.4); NEUTROPHILS % 58.8 % (40.0-76.0); PLATELET 115 x1000/uL (130-400); RED BLOOD CELL COUNT 4.23 mill/uL (4.2-5.4); RED CELL DISTRIBUTION WIDTH 16.3 % (11.6-14.6)
[2022-07-29 14:21] LABS: CHLORIDE 102 mEq/L (98-107)
[2022-07-30] VITALS (7 sets, daily range): BP systolic 103–136; BP diastolic 57–90
[2022-07-30] MEDS ORDERED: DEXTROSE 50% WATER 50ML SYRINGE IV PRN (03:00)
[2022-07-30 06:21] LABS: CLARITY URINE CLEAR (CLEAR); COLOR URINE YELLOW (YELLOW); KETONES URINE NEGATIVE (NEGATIVE); LEUKOCYTE ESTERASE URINE NEGATIVE (NEGATIVE); NITRITE URINE NEGATIVE (NEGATIVE); OCCULT BLOOD URINE NEGATIVE (NEGATIVE); PH URINE 7.5 (4.5-8.0); PROTEIN URINE NEGATIVE (NEGATIVE); SPECIFIC GRAVITY URINE 1.023 (1.005-1.030); UROBILINOGEN URINE 0.2 E.U./dL (0.2-1.0)
[2022-07-30] MEDS: BLOOD SUGAR DIAGNOSTIC STRIP TEST SCH ×4 (06:34→21:00)
[2022-07-30 06:36] LABS: *AMPHETAMINES SCREEN URINE NEGATIVE (NEGATIVE); *BARBITURATES SCREEN URINE NEGATIVE (NEGATIVE); *BENZODIAZEPINES SCREEN URINE NEGATIVE (NEGATIVE); *COCAINE SCREEN URINE NEGATIVE (NEGATIVE); CANNABINOID URINE SCREEN NEGATIVE (NEGATIVE); METHADONE URINE SCREEN NEGATIVE (NEGATIVE); OPIATES URINE SCREEN NEGATIVE (NEGATIVE); PHENCYCLIDINE URINE SCREEN NEGATIVE (NEGATIVE)
[2022-07-30] MEDS: INSULIN LISPRO 100 UNITS/ML SUBCUT SCH ×4 (06:44→22:36)
[2022-07-30 06:50] LABS: CHLORIDE 104 mEq/L (98-107)
[2022-07-30] MEDS ORDERED: PANTOPRAZOLE 40MG DR TABLET PO SCH (06:50)
[2022-07-30 07:05] LABS: CREATINE KINASE 142 IU/L (26-192); CREATINE KINASE MB FRACTION 1.9 ng/mL (0.5-3.6); HDL CHOLESTEROL 42 mg/dL (40-59); LDL CHOLESTEROL 88 mg/dL (5-100)
[2022-07-30] MEDS ORDERED: ERGOCALCIFEROL 50000UNITS CAPSULE PO SCH (09:00)
[2022-07-30] MEDS: TOPIRAMATE 25MG TABLET PO SCH ×3 (09:14→18:08)
[2022-07-30] MEDS: RIFAXIMIN 550 MG TABLET PO SCH ×2 (09:14→22:34)
[2022-07-30 10:01] LABS: EOSINOPHILS % 7.5 % (0.0-5.0); HEMATOCRIT. 35.2 % (36.0-48.0); HEMOGLOBIN. 11.8 g/dL (12.0-16.0); LYMPHOCYTES % 27.5 % (20.0-50.0); MEAN CORPUSCULAR HEMOGLOBIN 28.8 pg (28.0-32.0); MEAN CORPUSCULAR VOLUME 86.4 fL (81.0-99.0); MEAN PLATELET VOLUME 9.4 fl (7.4-10.4); MONOCYTES % 10.2 % (2.0-8.0); NEUTROPHILS % 53.8 % (40.0-76.0); PLATELET 105 x1000/uL (130-400); RED BLOOD CELL COUNT 4.08 mill/uL (4.2-5.4)
[2022-07-30] MEDS ORDERED: TRAMADOL 50MG TABLET PO PRN (12:15)
[2022-07-30] MEDS ORDERED: SODIUM POLYSTYRENE SULFONATE 15 G/60 ML BOT PO NR (12:15)
[2022-07-30] MEDS: ONDANSETRON HCL 4MG/2ML INJ IV PRN (12:57)
[2022-07-30] MEDS ORDERED: LACTULOSE 20G/30ML UDC PO SCH ×2 (14:00→21:00)
[2022-07-30 16:39] LABS: TOTAL IRON BINDING CAPACITY 349 ug/dL (250-450)
[2022-07-30 16:49] LABS: CREATINE KINASE 88 IU/L (26-192)
[2022-07-30 17:01] LABS: FOLIC ACID (FOLATE) SERUM 18.6 ng/mL (>5.38)
[2022-07-30] MEDS: INSULIN REGULAR (HUMULIN R) 300UNITS/3ML VIAL SUBCUT SCH (18:08)
[2022-07-30] MEDS: PANTOPRAZOLE 40MG DR TABLET PO SCH (18:08)
[2022-07-30] MEDS: NYSTATIN POWDER 15GM TOP SCH (18:09)
[2022-07-30 19:06] LABS: PHOSPHORUS 4.2 mg/dL (2.5-4.9)
[2022-07-30 19:49] LABS: CHLORIDE 99 mEq/L (98-107)
[2022-07-30] MEDS ORDERED: INSULIN GLARGINE 100 UNITS/ML SUBCUT SCH (21:00)
[2022-07-30] MEDS: INSULIN GLARGINE 100 UNITS/ML SUBCUT SCH (22:37)
[2022-07-31] VITALS: BP 106/52
[2022-07-31] MEDS: NYSTATIN POWDER 15GM TOP SCH ×2 (00:15→08:38)
[2022-07-31 04:00] VITALS: BP 112/49
[2022-07-31] MEDS: BLOOD SUGAR DIAGNOSTIC STRIP TEST SCH ×4 (06:27→20:36)
[2022-07-31] MEDS: INSULIN REGULAR (HUMULIN R) 300UNITS/3ML VIAL SUBCUT SCH ×3 (06:39→18:35)
[2022-07-31] MEDS: INSULIN LISPRO 100 UNITS/ML SUBCUT SCH ×4 (06:40→23:04)
[2022-07-31 07:16] LABS: BASOPHILS % 0.8 % (0.0-2.0); EOSINOPHILS % 6.5 % (0.0-5.0); HEMATOCRIT. 34.2 % (36.0-48.0); HEMOGLOBIN. 11.4 g/dL (12.0-16.0); MEAN CORPUSCULAR HEMOGLOBIN 28.5 pg (28.0-32.0); MEAN CORPUSCULAR VOLUME 85.2 fL (81.0-99.0); MEAN PLATELET VOLUME 9.3 fl (7.4-10.4); MONOCYTES % 9.1 % (2.0-8.0); NEUTROPHILS % 51.6 % (40.0-76.0); PLATELET 97 x1000/uL (130-400); RED BLOOD CELL COUNT 4.01 mill/uL (4.2-5.4); RED CELL DISTRIBUTION WIDTH 16.1 % (11.6-14.6)
[2022-07-31 07:20] LABS: INR 1.2; PROTHROMBIN TIME 12.8 sec (9.6-11.0)
[2022-07-31 07:26] LABS: CHLORIDE 104 mEq/L (98-107)
[2022-07-31 08:00] VITALS: BP 142/93
[2022-07-31] MEDS: RIFAXIMIN 550 MG TABLET PO SCH ×2 (08:34→20:25)
[2022-07-31] MEDS: PANTOPRAZOLE 40MG DR TABLET PO SCH ×2 (08:34→18:35)
[2022-07-31] MEDS: TOPIRAMATE 25MG TABLET PO SCH ×3 (08:34→18:35)
[2022-07-31] MEDS ORDERED: NALOXONE HCL 0.4MG/ML VIAL IV PRN (11:45)
[2022-07-31] MEDS: INSULIN GLARGINE 100 UNITS/ML SUBCUT SCH ×2 (13:11→23:05)
[2022-07-31] MEDS: LACTULOSE 20G/30ML UDC PO SCH ×2 (13:13→20:25)
[2022-07-31] MEDS: IRON SUCROSE COMPLEX 100 MG/5 ML ML IV SCH (13:13)
[2022-07-31 16:00] VITALS: BP 158/81
[2022-07-31 20:00] VITALS: BP 133/61
[2022-08-01] VITALS: BP 143/77
[2022-08-01] MEDS: NYSTATIN POWDER 15GM TOP SCH ×2 (00:27→12:14)
[2022-08-01 04:00] VITALS: BP 133/45
[2022-08-01] MEDS: LACTULOSE 20G/30ML UDC PO SCH ×3 (05:59→21:44)
[2022-08-01 06:50] LABS: BASOPHILS % 0.8 % (0.0-2.0); EOSINOPHILS % 5.4 % (0.0-5.0); HEMATOCRIT. 34.9 % (36.0-48.0); HEMOGLOBIN. 11.6 g/dL (12.0-16.0); LYMPHOCYTES % 31.8 % (20.0-50.0); MEAN CORPUSCULAR HEMOGLOBIN 28.3 pg (28.0-32.0); MEAN CORPUSCULAR VOLUME 85.6 fL (81.0-99.0); MEAN PLATELET VOLUME 9.5 fl (7.4-10.4); MONOCYTES % 9.5 % (2.0-8.0); NEUTROPHILS % 52.5 % (40.0-76.0); PLATELET 97 x1000/uL (130-400); RED BLOOD CELL COUNT 4.08 mill/uL (4.2-5.4); RED CELL DISTRIBUTION WIDTH 16.2 % (11.6-14.6)
[2022-08-01] MEDS: BLOOD SUGAR DIAGNOSTIC STRIP TEST SCH ×4 (07:04→21:57)
[2022-08-01] MEDS: INSULIN REGULAR (HUMULIN R) 300UNITS/3ML VIAL SUBCUT SCH ×3 (07:10→16:56)
[2022-08-01 07:16] LABS: CHLORIDE 104 mEq/L (98-107)
[2022-08-01 08:00] VITALS: BP 148/85
[2022-08-01] MEDS: RIFAXIMIN 550 MG TABLET PO SCH ×2 (09:05→21:44)
[2022-08-01] MEDS: IRON SUCROSE COMPLEX 100 MG/5 ML ML IV SCH (09:05)
[2022-08-01] MEDS: TOPIRAMATE 25MG TABLET PO SCH ×3 (09:05→16:55)
[2022-08-01] MEDS: PANTOPRAZOLE 40MG DR TABLET PO SCH ×2 (09:05→16:54)
[2022-08-01] MEDS: INSULIN GLARGINE 100 UNITS/ML SUBCUT SCH ×2 (09:06→22:05)
[2022-08-01] MEDS: INSULIN LISPRO 100 UNITS/ML SUBCUT SCH ×4 (09:09→22:06)
[2022-08-01] MEDS ORDERED: LACTULOSE 20G/30ML UDC PO NR (09:15)
[2022-08-01 12:00] VITALS: BP 172/85
[2022-08-01] MEDS ORDERED: LACTULOSE 20G/30ML UDC PO SCH (14:00)
[2022-08-01 16:00] VITALS: BP 142/78
[2022-08-01 20:00] VITALS: BP 160/87
[2022-08-02] VITALS: BP 166/89
[2022-08-02] MEDS: NYSTATIN POWDER 15GM TOP SCH ×2 (00:09→18:14)
[2022-08-02 04:00] VITALS: BP 158/77
[2022-08-02] MEDS: LACTULOSE 20G/30ML UDC PO SCH ×3 (05:55→21:06)
[2022-08-02 06:06] LABS: BASOPHILS % 0.8 % (0.0-2.0); HEMATOCRIT. 36.8 % (36.0-48.0); HEMOGLOBIN. 12.3 g/dL (12.0-16.0); LYMPHOCYTES % 29.2 % (20.0-50.0); MEAN CORPUSCULAR HEMOGLOBIN 28.8 pg (28.0-32.0); MEAN CORPUSCULAR VOLUME 86.1 fL (81.0-99.0); MEAN PLATELET VOLUME 9.6 fl (7.4-10.4); MONOCYTES % 9.7 % (2.0-8.0); NEUTROPHILS % 56.3 % (40.0-76.0); PLATELET 102 x1000/uL (130-400); RED BLOOD CELL COUNT 4.28 mill/uL (4.2-5.4); RED CELL DISTRIBUTION WIDTH 16.5 % (11.6-14.6)
[2022-08-02] MEDS: BLOOD SUGAR DIAGNOSTIC STRIP TEST SCH ×4 (07:05→20:54)
[2022-08-02] MEDS: INSULIN LISPRO 100 UNITS/ML SUBCUT SCH ×4 (07:05→21:13)
[2022-08-02] MEDS: INSULIN REGULAR (HUMULIN R) 300UNITS/3ML VIAL SUBCUT SCH ×3 (07:07→18:12)
[2022-08-02 07:42] LABS: CHLORIDE 108 mEq/L (98-107)
[2022-08-02 08:00] VITALS: BP 156/87
[2022-08-02] MEDS: TOPIRAMATE 25MG TABLET PO SCH ×3 (09:05→18:12)
[2022-08-02] MEDS: RIFAXIMIN 550 MG TABLET PO SCH ×2 (09:05→21:06)
[2022-08-02] MEDS: PANTOPRAZOLE 40MG DR TABLET PO SCH ×2 (09:05→18:11)
[2022-08-02] MEDS: IRON SUCROSE COMPLEX 100 MG/5 ML ML IV SCH (09:06)
[2022-08-02] MEDS: INSULIN GLARGINE 100 UNITS/ML SUBCUT SCH ×2 (09:13→21:12)
[2022-08-02] MEDS: ONDANSETRON HCL 4MG/2ML INJ IV PRN (10:09)
[2022-08-02] MEDS ORDERED: RIFAXIMIN 550 MG TABLET PO SCH (11:00)
[2022-08-02] MEDS: BUMETANIDE 1MG TABLET PO SCH (11:57)
[2022-08-02 12:00] VITALS: BP 139/74
[2022-08-02] MEDS: SUCRALFATE 1G TABLET PO SCH ×3 (12:37→21:06)
[2022-08-02 16:00] VITALS: BP 158/76
[2022-08-02 20:17] VITALS: BP 116/60
[2022-08-03 00:11] VITALS: BP 119/55
[2022-08-03] MEDS: NYSTATIN POWDER 15GM TOP SCH (00:20)
[2022-08-03 03:43] VITALS: BP 125/66
[2022-08-03 05:18] LABS: BASOPHILS % 0.7 % (0.0-2.0); EOSINOPHILS % 5.4 % (0.0-5.0); HEMATOCRIT. 39.1 % (36.0-48.0); HEMOGLOBIN. 12.9 g/dL (12.0-16.0); LYMPHOCYTES % 32.6 % (20.0-50.0); MEAN CORPUSCULAR HEMOGLOBIN 28.8 pg (28.0-32.0); MEAN CORPUSCULAR VOLUME 87.6 fL (81.0-99.0); MEAN PLATELET VOLUME 9.5 fl (7.4-10.4); MONOCYTES % 7.5 % (2.0-8.0); NEUTROPHILS % 53.8 % (40.0-76.0); PLATELET 100 x1000/uL (130-400); RED BLOOD CELL COUNT 4.46 mill/uL (4.2-5.4); RED CELL DISTRIBUTION WIDTH 16.3 % (11.6-14.6)
[2022-08-03] MEDS: LACTULOSE 20G/30ML UDC PO SCH (05:23)
[2022-08-03 05:32] LABS: CHLORIDE 107 mEq/L (98-107)
[2022-08-03 05:42] LABS: PHOSPHORUS 2.8 mg/dL (2.5-4.9)
[2022-08-03] MEDS: BLOOD SUGAR DIAGNOSTIC STRIP TEST SCH (07:02)
[2022-08-03 08:00] VITALS: BP 136/70
[2022-08-03] MEDS ORDERED: POTASSIUM CHLORIDE 20MEQ TABLET SR PO NR (08:00)
[2022-08-03] MEDS: SUCRALFATE 1G TABLET PO SCH (08:34)
[2022-08-03] MEDS: PANTOPRAZOLE 40MG DR TABLET PO SCH (08:34)
[2022-08-03] MEDS: RIFAXIMIN 550 MG TABLET PO SCH (08:34)
[2022-08-03] MEDS: BUMETANIDE 1MG TABLET PO SCH (08:35)
[2022-08-03] MEDS: TOPIRAMATE 25MG TABLET PO SCH (08:35)
[2022-08-03] MEDS: INSULIN LISPRO 100 UNITS/ML SUBCUT SCH (08:36)
[2022-08-03] MEDS: INSULIN REGULAR (HUMULIN R) 300UNITS/3ML VIAL SUBCUT SCH (08:36)
[2022-08-03] MEDS: INSULIN GLARGINE 100 UNITS/ML SUBCUT SCH (08:36)
[2022-08-03] MEDS ORDERED: NYST15PO4 TP (09:18)
[2022-08-03 09:44] VITALS: BP 136/70
[2022-08-03] MEDS ORDERED: LACT10SO7 PO (11:19)
== END 2022-08-03 11:35 | disposition home or self-care (01) ==
LOC: ER 11:59 → MICUSO 16:43 → EDBEDREQTM 16:57 → EDBEDREQ 16:57 → 3WST 07-30 00:38
PROVIDERS: ADMIT Internal Medicine; ATTEND Internal Medicine
DX: K76.82 Hepatic encephalopathy (principal); D69.6 Thrombocytopenia, unspecified; E72.20 Disorder of urea cycle metabolism, unspecified; E88.09 Other disorders of plasma-protein metabolism, not elsewhere classified; K92.2 Gastrointestinal hemorrhage, unspecified; R16.2 Hepatomegaly with splenomegaly, not elsewhere classified; I50.32 Chronic diastolic (congestive) heart failure; I11.0 Hypertensive heart disease with heart failure; M94.0 Chondrocostal junction syndrome [Tietze]; E11.65 Type 2 diabetes mellitus with hyperglycemia; Z20.822 Contact with and (suspected) exposure to COVID-19; D64.9 Anemia, unspecified; E66.01 Morbid (severe) obesity due to excess calories; K64.8 Other hemorrhoids; K74.60 Unspecified cirrhosis of liver; E78.5 Hyperlipidemia, unspecified; G89.29 Other chronic pain; E87.5 Hyperkalemia; Z91.14 Patient's other noncompliance with medication regimen; Z88.0 Allergy status to penicillin; Z68.41 Body mass index [BMI] 40.0-44.9, adult; Z88.2 Allergy status to sulfonamides; Z88.6 Allergy status to analgesic agent; Z79.4 Long term (current) use of insulin; Z90.49 Acquired absence of other specified parts of digestive tract
CPT/HCPCS: 36415; 71045; 76700; 80048; 80053; 80061; 80305; 81003; 82140; 82550; 82553; 82607; 82728; 82746; 82962; 83540; 83550; 83735; 83880; 84100; 84132; 84484; 85025; 85044; 85379; 87426; 93005; 93970; 97162; 99285; J1815; J2405

== ENCOUNTER 2022-10-01 17:04 | Emergency (ER) | payer MEDICAID ==
[~2022-10-01] VITALS: Ht 157.5 cm; Wt 125.0 kg
[~2022-10-01 17:04] MED LIST changes: +NYST15PO4 TP
[2022-10-01] MEDS ORDERED: SODIUM CHLORIDE 0.9% 1,000 ML IV ONE (18:30)
[2022-10-01] MEDS ORDERED: KETOROLAC 15MG/ML VIAL IV ONE (18:30)
[2022-10-01] MEDS ORDERED: MECLIZINE 25MG TABLET PO ONE (18:30)
[2022-10-01] MEDS ORDERED: LORAZEPAM 2MG/ML CPJ IV ONE (18:30)
[2022-10-01 18:58] LABS: BASOPHILS % 0.6 % (0.0-2.0); EOSINOPHILS % 7.3 % (0.0-5.0); HEMATOCRIT. 36.1 % (36.0-48.0); HEMOGLOBIN. 12.2 g/dL (12.0-16.0); LYMPHOCYTES % 24.7 % (20.0-50.0); MEAN CORPUSCULAR HEMOGLOBIN 31.7 pg (28.0-32.0); MEAN PLATELET VOLUME 9.9 fl (7.4-10.4); MONOCYTES % 9.8 % (2.0-8.0); NEUTROPHILS % 57.6 % (40.0-76.0); PLATELET 92 x1000/uL (130-400); RED BLOOD CELL COUNT 3.84 mill/uL (4.2-5.4); RED CELL DISTRIBUTION WIDTH 16.6 % (11.6-14.6)
[2022-10-01 19:06] LABS: CHLORIDE 101 mEq/L (98-107)
[2022-10-01 19:11] LABS: CLARITY URINE CLEAR (CLEAR); COLOR URINE YELLOW (YELLOW); KETONES URINE NEGATIVE (NEGATIVE); LEUKOCYTE ESTERASE URINE TRACE (NEGATIVE); NITRITE URINE NEGATIVE (NEGATIVE); OCCULT BLOOD URINE NEGATIVE (NEGATIVE); PH URINE 5.5 (4.5-8.0); PROTEIN URINE NEGATIVE (NEGATIVE); UROBILINOGEN URINE 0.2 E.U./dL (0.2-1.0)
[2022-10-01 19:21] LABS: INR 1.3; PROTHROMBIN TIME 13.4 sec (9.6-11.0)
[2022-10-01] MEDS ORDERED: MECLIZINE 12.5MG TABLET PO NR (20:15)
[2022-10-01] MEDS ORDERED: CLINDAMYCIN 600 MG in DEXTROSE 5% WATER 50 ML IV STA (23:32)
[2022-10-01] MEDS ORDERED: CLINDAMYCIN IN 0.9 % SOD CHLOR 50 ML IV NR (23:45)
[2022-10-02 01:20] VITALS: BP 134/50
== END 2022-10-02 05:36 | disposition short-term general hospital (02) ==
LOC: ER 17:04
DX: R53.1 Weakness (principal); R59.1 Generalized enlarged lymph nodes; Z20.822 Contact with and (suspected) exposure to COVID-19; Z88.0 Allergy status to penicillin; Z88.2 Allergy status to sulfonamides; Z88.8 Allergy status to other drugs, medicaments and biological substances; Z79.899 Other long term (current) drug therapy; Z88.6 Allergy status to analgesic agent; Z90.49 Acquired absence of other specified parts of digestive tract; Z98.890 Other specified postprocedural states; W01.0XXA Fall on same level from slipping, tripping and stumbling without subsequent striking against object, initial encounter; Y93.89 Activity, other specified; Y92.89 Other specified places as the place of occurrence of the external cause; Y99.8 Other external cause status
CPT/HCPCS: 36415; 70450; 71045; 74176; 80053; 81003; 83880; 84484; 85025; 85610; 87426; 96361; 96365; 96375; 99285; C9803; J1885; J2060; J3490; J7030; J7060; Z7610; J8597

== ENCOUNTER 2023-01-12 10:44 | Emergency (ER) | payer MEDICAID ==
[~2023-01-12] VITALS: Ht 165.1 cm; Wt 107.0 kg
[~2023-01-12 10:44] MED LIST changes: -BUME0.5T5 MT; +CLAR10 PO; +COR3 PO; -LIRA0.6P SQ; -NYST15PO4 TP
[2023-01-12 10:47] VITALS: O2SAT 98
[2023-01-12 13:19] VITALS: BP 134/87; PULSE 80; RESP 18; TEMP 98.1
== END 2023-01-12 12:50 | disposition home or self-care (01) ==
LOC: ER 10:44
DX: R10.9 Unspecified abdominal pain (principal); I10 Essential (primary) hypertension; E11.9 Type 2 diabetes mellitus without complications; Z88.0 Allergy status to penicillin; Z88.2 Allergy status to sulfonamides; Z88.5 Allergy status to narcotic agent; Z79.899 Other long term (current) drug therapy; Z98.890 Other specified postprocedural states
CPT/HCPCS: 74022; 99283

== ENCOUNTER 2023-01-22 14:48 | Emergency (ER) | payer MEDICAID ==
[~2023-01-22] VITALS: Ht 167.6 cm; Wt 90.0 kg
[2023-01-22 14:51] VITALS: O2SAT 99
[2023-01-22] MEDS ORDERED: ONDANSETRON HCL 4MG/2ML INJ IV STA ×2 (15:03→18:34)
[2023-01-22] MEDS ORDERED: MORPHINE SULFATE 4 MG/ML CPJ (NOT FOR IM USE) IV STA ×2 (15:03→18:34)
[2023-01-22] MEDS ORDERED: VANCOMYCIN 1GM PMX (XELLIA) 200 ML IV STA (15:14)
[2023-01-22] MEDS ORDERED: SODIUM CHLORIDE 0.9% 1,000 ML IV ONE (15:15)
[2023-01-22] MEDS ORDERED: LEVOFLOXACIN 750MG PREMIX 150 ML IV ONE (15:15)
[2023-01-22] MEDS ORDERED: VANCOMYCIN 1G PREMIX 200 ML IV NR (16:15)
[2023-01-22 17:18] LABS: EOSINOPHILS % 5.1 % (0.0-5.0); HEMATOCRIT. 30.6 % (36.0-48.0); HEMOGLOBIN. 10.4 g/dL (12.0-16.0); MEAN CORPUSCULAR HEMOGLOBIN 31.7 pg (28.0-32.0); MEAN CORPUSCULAR HGB CONC 33.9 g/dL (31.0-37.0); MEAN CORPUSCULAR VOLUME 93.5 fL (81.0-99.0); MEAN PLATELET VOLUME 9.3 fl (7.4-10.4); MONOCYTES % 10.7 % (2.0-8.0); NEUTROPHILS % 61.2 % (40.0-76.0); PLATELET 125 x1000/uL (130-400); RED BLOOD CELL COUNT 3.28 mill/uL (4.2-5.4); RED CELL DISTRIBUTION WIDTH 14.8 % (11.6-14.6); WHITE BLOOD COUNT 5.2 x1000/uL (4.5-11.0)
[2023-01-22 17:22] LABS: CHLORIDE 109 mEq/L (98-107); INDEX HEMOLYSI 1 (1-3); INDEX ICTERIC 1 (1-4); INDEX LIPEMIC 1 (1-3); POTASSIUM 4.4 mEq/L (3.5-5.1); SODIUM 136 mEq/L (136-145)
[2023-01-22 17:26] LABS: INR 1.2; PARTIAL THROMBOPLASTIN TIME 27.6 sec (23.4-31.0); PROTHROMBIN TIME 12.7 sec (9.6-11.0)
[2023-01-22 17:32] LABS: ALANINE AMINOTRANSFERASE 40 IU/L (13-61); ALBUMIN 1.8 g/dL (3.4-5.0); ASPARTATE AMINOTRANSFERASE 35 IU/L (15-37); BILIRUBIN TOTAL 0.5 mg/dL (0.1-1.0); CALCIUM 7.6 mg/dL (8.5-10.1); CARBON DIOXIDE 23 mEq/L (21-32); CREATINE KINASE 87 IU/L (26-192); CREATININE 0.7 mg/dL (0.6-1.3); GLUCOSE 202 mg/dL (70-105); PROTEIN TOTAL 5.8 g/dL (6.0-8.3); UREA NITROGEN BLOOD 11 mg/dL (7-21)
[2023-01-22 17:33] LABS: NT PRO B-TYPE NATRIURETIC PEP 108 pg/mL (5-125); TROPONIN I HIGH SENSITIVITY 7 ng/L (<54)
[2023-01-22 18:40] LABS: CLARITY URINE CLEAR (CLEAR); COLOR URINE YELLOW (YELLOW); GLUCOSE URINE 1+ (NEGATIVE); KETONES URINE NEGATIVE (NEGATIVE); LEUKOCYTE ESTERASE URINE NEGATIVE (NEGATIVE); NITRITE URINE POSITIVE (NEGATIVE); OCCULT BLOOD URINE NEGATIVE (NEGATIVE); PH URINE 5.5 (4.5-8.0); PROTEIN URINE NEGATIVE (NEGATIVE); SPECIFIC GRAVITY URINE 1.009 (1.005-1.030); UROBILINOGEN URINE 0.2 E.U./dL (0.2-1.0)
[2023-01-22] MEDS ORDERED: DIPHENHYDRAMINE 50MG/ML VIAL IV ONE (19:00)
[2023-01-22 19:08] LABS: BACTERIA URINE 3+; RBC URINE 0-2 /hpf (0-2); SQUAMOUS EPITHELIAL CELL URINE FEW /lpf (RARE/1+); WBC URINE 0-2 /hpf (0-2)
[2023-01-22 22:19] VITALS: BP 162/65; PULSE 79; RESP 15; TEMP 98.4
== END 2023-01-22 23:57 | disposition short-term general hospital (02) ==
LOC: ER 14:52 → CANBEDREQ 01-24 23:58
DX: R10.9 Unspecified abdominal pain (principal); L03.116 Cellulitis of left lower limb; L03.311 Cellulitis of abdominal wall; E11.9 Type 2 diabetes mellitus without complications; I10 Essential (primary) hypertension; Z87.19 Personal history of other diseases of the digestive system; Z90.49 Acquired absence of other specified parts of digestive tract; Z79.899 Other long term (current) drug therapy
CPT/HCPCS: 80053; 81003; 82550; 83880; 83605; 83690; 85025; 85610; 85730; 86850; 86900; 86901; 87040; 87086; 87186; 84484; 87077; 36415; 71045; 73560; 73590; 73610; 73630; 70450; 74176; 93005; 96368; 96361; 96365; 96375; 99285; J1200; J2405; J3370; J2270; J1956; J7030; Z7610 ×6

== ENCOUNTER 2023-02-18 12:26 | Emergency (ER) | payer MEDICAID ==
[~2023-02-18] VITALS: Ht 162.6 cm; Wt 130.0 kg
[2023-02-18 12:31] VITALS: O2SAT 99
[2023-02-18] MEDS ORDERED: MAGNESIUM/ALUMINUM HYDROXIDE/SIMETHICONE 30ML UDC PO ONE (13:00)
[2023-02-18 13:13] LABS: BASOPHILS % 0.7 % (0.0-2.0); EOSINOPHILS % 5.5 % (0.0-5.0); HEMATOCRIT. 30.1 % (36.0-48.0); HEMOGLOBIN. 10.3 g/dL (12.0-16.0); LYMPHOCYTES % 15.8 % (20.0-50.0); MEAN CORPUSCULAR HEMOGLOBIN 31.4 pg (28.0-32.0); MEAN CORPUSCULAR HGB CONC 34.2 g/dL (31.0-37.0); MEAN CORPUSCULAR VOLUME 91.9 fL (81.0-99.0); MONOCYTES % 9.7 % (2.0-8.0); NEUTROPHILS % 68.3 % (40.0-76.0); PLATELET 99 x1000/uL (130-400); RED BLOOD CELL COUNT 3.28 mill/uL (4.2-5.4); RED CELL DISTRIBUTION WIDTH 14.9 % (11.6-14.6); WHITE BLOOD COUNT 4.9 x1000/uL (4.5-11.0)
[2023-02-18 13:20] LABS: INDEX HEMOLYSI 1 (1-3); INDEX ICTERIC 1 (1-4); INDEX LIPEMIC 1 (1-3)
[2023-02-18 13:22] LABS: INDEX HEMOLYSI 1 (1-3)
[2023-02-18 13:40] LABS: ALANINE AMINOTRANSFERASE 43 IU/L (13-61); ALBUMIN 2.1 g/dL (3.4-5.0); ASPARTATE AMINOTRANSFERASE 47 IU/L (15-37); BILIRUBIN TOTAL 0.6 mg/dL (0.1-1.0); CALCIUM 9.1 mg/dL (8.5-10.1); CARBON DIOXIDE 24 mEq/L (21-32); CHLORIDE 112 mEq/L (98-107); CREATININE 0.7 mg/dL (0.6-1.3); GLUCOSE 130 mg/dL (70-105); POTASSIUM 4.5 mEq/L (3.5-5.1); PROTEIN TOTAL 6.5 g/dL (6.0-8.3); SODIUM 137 mEq/L (136-145); UREA NITROGEN BLOOD 16 mg/dL (7-21)
[2023-02-18 13:45] LABS: AMMONIA 138 uMol/L (<32)
[2023-02-18] MEDS ORDERED: LACTULOSE 20G/30ML UDC PO ONE (14:00)
[2023-02-18] MEDS ORDERED: ONDANSETRON HCL 4MG/2ML INJ IV STA (14:30)
[2023-02-18] MEDS ORDERED: LACTULOSE 20G/30ML UDC PO NR (16:00)
[2023-02-18] MEDS ORDERED: MAGNESIUM/ALUMINUM HYDROXIDE/SIMETHICONE 30ML UDC PO NR (16:00)
[2023-02-18] MEDS ORDERED: LEVOFLOXACIN 500MG PREMIX 100 ML IV ONE (20:00)
[2023-02-18 21:55] VITALS: BP 135/41; PULSE 82; RESP 16; TEMP 98
== END 2023-02-18 22:34 ==
LOC: ER 12:26
DX: R10.13 Epigastric pain (principal); R11.2 Nausea with vomiting, unspecified; E11.9 Type 2 diabetes mellitus without complications; Z87.19 Personal history of other diseases of the digestive system; I10 Essential (primary) hypertension; Z90.49 Acquired absence of other specified parts of digestive tract; Z79.899 Other long term (current) drug therapy
CPT/HCPCS: 80053; 82140; 83690; 85025; 36415; 74176; 93005; 96374; 99285; J2405; Z7610 ×3

== ENCOUNTER 2023-02-22 19:57 | Emergency (ER) | payer MEDICAID ==
[~2023-02-22] VITALS: Ht 165.1 cm; Wt 103.0 kg
[2023-02-22 20:11] VITALS: O2SAT 100
[2023-02-22 21:30] LABS: BASOPHILS % 0.7 % (0.0-2.0); EOSINOPHILS % 6.1 % (0.0-5.0); HEMATOCRIT. 31.6 % (36.0-48.0); HEMOGLOBIN. 10.3 g/dL (12.0-16.0); LYMPHOCYTES % 22.5 % (20.0-50.0); MEAN CORPUSCULAR HEMOGLOBIN 30.9 pg (28.0-32.0); MEAN CORPUSCULAR HGB CONC 32.6 g/dL (31.0-37.0); MEAN PLATELET VOLUME 9.6 fl (7.4-10.4); MONOCYTES % 11.2 % (2.0-8.0); NEUTROPHILS % 59.5 % (40.0-76.0); PLATELET 109 x1000/uL (130-400); RED BLOOD CELL COUNT 3.32 mill/uL (4.2-5.4); RED CELL DISTRIBUTION WIDTH 14.8 % (11.6-14.6); WHITE BLOOD COUNT 4.9 x1000/uL (4.5-11.0)
[2023-02-22 21:39] LABS: CHLORIDE 106 mEq/L (98-107); INDEX HEMOLYSI 1 (1-3); INDEX ICTERIC 1 (1-4); INDEX LIPEMIC 1 (1-3); POTASSIUM 4.8 mEq/L (3.5-5.1); SODIUM 131 mEq/L (136-145)
[2023-02-22 21:46] LABS: ALANINE AMINOTRANSFERASE 47 IU/L (13-61); ALBUMIN 2.1 g/dL (3.4-5.0); ASPARTATE AMINOTRANSFERASE 53 IU/L (15-37); BILIRUBIN TOTAL 0.6 mg/dL (0.1-1.0); CALCIUM 7.7 mg/dL (8.5-10.1); CARBON DIOXIDE 23 mEq/L (21-32); CREATININE 0.8 mg/dL (0.6-1.3); PROTEIN TOTAL 6.4 g/dL (6.0-8.3); TROPONIN I HIGH SENSITIVITY 10 ng/L (<54); UREA NITROGEN BLOOD 15 mg/dL (7-21)
[2023-02-22 22:22] LABS: GLUCOSE 486 mg/dL (70-105)
[2023-02-23] MEDS ORDERED: INSULIN REGULAR (HUMULIN R) 300UNITS/3ML VIAL SUBCUT NR (03:45)
[2023-02-23] MEDS ORDERED: SODIUM CHLORIDE 0.9% 1,000 ML IV ONE (03:45)
[2023-02-23 09:57] VITALS: BP 126/59; PULSE 69; RESP 16; TEMP 98.3
== END 2023-02-22 23:18 | disposition short-term general hospital (02) ==
LOC: ER 20:44
DX: R07.89 Other chest pain (principal); E11.9 Type 2 diabetes mellitus without complications; I10 Essential (primary) hypertension; Z88.0 Allergy status to penicillin; Z88.6 Allergy status to analgesic agent; Z88.2 Allergy status to sulfonamides; Z91.041 Radiographic dye allergy status; Z79.899 Other long term (current) drug therapy
CPT/HCPCS: 36415; 80053; 82962; 84484; 85025; 93005; 96360; 96372; 99285

== ENCOUNTER 2023-04-11 15:56 | Emergency (ER) | payer MEDICAID ==
[~2023-04-11] VITALS: Ht 160 cm; Wt 91.0 kg
[2023-04-11 16:00] VITALS: BP 139/62; PULSE 83; RESP 16; TEMP 98.6; O2SAT 97
[2023-04-11] MEDS ORDERED: FUROSEMIDE 40MG/4ML VIAL IVP ONE (16:15)
[2023-04-11 16:42] LABS: BASOPHILS % 1.2 % (0.0-2.0); EOSINOPHILS % 7.9 % (0.0-5.0); HEMATOCRIT. 28.4 % (36.0-48.0); HEMOGLOBIN. 9.1 g/dL (12.0-16.0); LYMPHOCYTES % 19.9 % (20.0-50.0); MEAN CORPUSCULAR HEMOGLOBIN 28.8 pg (28.0-32.0); MEAN CORPUSCULAR HGB CONC 32.2 g/dL (31.0-37.0); MEAN CORPUSCULAR VOLUME 89.5 fL (81.0-99.0); MONOCYTES % 11.2 % (2.0-8.0); NEUTROPHILS % 59.8 % (40.0-76.0); PLATELET 116 x1000/uL (130-400); RED BLOOD CELL COUNT 3.17 mill/uL (4.2-5.4)
[2023-04-11 16:48] LABS: CHLORIDE 108 mEq/L (98-107); INDEX HEMOLYSI 1 (1-3); INDEX ICTERIC 1 (1-4); INDEX LIPEMIC 1 (1-3); POTASSIUM 4.9 mEq/L (3.5-5.1); SODIUM 135 mEq/L (136-145)
[2023-04-11 16:59] LABS: ALANINE AMINOTRANSFERASE 36 IU/L (13-61); ALBUMIN 1.9 g/dL (3.4-5.0); ASPARTATE AMINOTRANSFERASE 40 IU/L (15-37); BILIRUBIN TOTAL 0.5 mg/dL (0.1-1.0); CALCIUM 8.1 mg/dL (8.5-10.1); CARBON DIOXIDE 22 mEq/L (21-32); CREATININE 0.7 mg/dL (0.6-1.3); GLUCOSE 122 mg/dL (70-105); NT PRO B-TYPE NATRIURETIC PEP 149 pg/mL (5-125); TROPONIN I HIGH SENSITIVITY 10 ng/L (<54); UREA NITROGEN BLOOD 16 mg/dL (7-21)
== END 2023-04-11 20:08 | disposition left against medical advice (07) ==
LOC: ER 15:56 → EDBEDREQ 18:32 → ER 20:08
DX: I50.9 Heart failure, unspecified (principal); I11.0 Hypertensive heart disease with heart failure; D64.9 Anemia, unspecified; E11.9 Type 2 diabetes mellitus without complications; E78.00 Pure hypercholesterolemia, unspecified; Z88.0 Allergy status to penicillin; Z88.2 Allergy status to sulfonamides; Z88.8 Allergy status to other drugs, medicaments and biological substances; Z88.5 Allergy status to narcotic agent
CPT/HCPCS: 36415; 71045; 80053; 82962; 83880; 84484; 85025; 99284

== ENCOUNTER 2023-07-28 14:27 | Emergency (ER) | payer MEDICAID ==
[~2023-07-28] VITALS: Ht 160 cm; Wt 93.0 kg
[2023-07-28 14:36] VITALS: TEMP 98.2; O2SAT 99
[2023-07-28 15:39] LABS: DIFFERENTIAL COMMENT 0; EOSINOPHILS % 3.3 % (0.0-5.0); LYMPHOCYTES % 14.2 % (20.0-50.0); MEAN CORPUSCULAR HGB CONC 30.9 g/dL (31.0-37.0); MEAN CORPUSCULAR VOLUME 77.7 fL (81.0-99.0); MEAN PLATELET VOLUME 8.3 fl (7.4-10.4); MONOCYTES % 10.4 % (2.0-8.0); NEUTROPHILS % 71.1 % (40.0-76.0); PLATELET 179 x1000/uL (130-400); RED BLOOD CELL COUNT 2.71 mill/uL (4.2-5.4); RED CELL DISTRIBUTION WIDTH 19.6 % (11.6-14.6); WHITE BLOOD COUNT 5.6 x1000/uL (4.5-11.0)
[2023-07-28 15:41] VITALS: BP 128/56; PULSE 84; RESP 16
[2023-07-28] MEDS: SODIUM CHLORIDE 0.9% 1,000 ML IV ONE (15:41)
[2023-07-28] MEDS: ONDANSETRON HCL 4MG/2ML INJ IV STA (15:41)
[2023-07-28] MEDS: MORPHINE SULFATE 4 MG/ML CPJ (NOT FOR IM USE) IV STA (15:41)
[2023-07-28 15:51] LABS: HEMOGLOBIN. 6.5 g/dL (12.0-16.0)
[2023-07-28 16:07] LABS: ALANINE AMINOTRANSFERASE 35 IU/L (10-49); ALBUMIN 2.3 g/dL (3.2-4.8); ASPARTATE AMINOTRANSFERASE 46 IU/L (<34); BILIRUBIN TOTAL 0.8 mg/dL (0.1-1.0); CALCIUM 7.7 mg/dL (8.7-10.4); CARBON DIOXIDE 22 mEq/L (21-32); CHLORIDE 101 mEq/L (98-107); CREATININE 0.9 mg/dL (0.6-1.0); GLUCOSE 169 mg/dL (70-105); POTASSIUM 5.4 mEq/L (3.5-5.1); SODIUM 128 mEq/L (136-145); TROPONIN I HIGH SENSITIVITY 7 ng/L (3.0-34); UREA NITROGEN BLOOD 18 mg/dL (9-23)
[2023-07-28 16:33] LABS: INR 1.2; PARTIAL THROMBOPLASTIN TIME 26.3 sec (23.4-31.0); PROTHROMBIN TIME 13.1 sec (9.6-11.0)
[2023-07-28] MEDS ORDERED: SODIUM BICARBONATE 8.4% 1 MEQ/ML 50ML SYR IV ONE (18:15)
[2023-07-28] MEDS: SODIUM BICARBONATE 8.4% 1 MEQ/ML 50ML SYR IV NR (19:38)
== END 2023-07-29 00:53 | disposition short-term general hospital (02) ==
LOC: ER 14:27 → CANBEDREQ 07-29 21:24
DX: R10.11 Right upper quadrant pain (principal); D64.9 Anemia, unspecified; R18.8 Other ascites; R14.0 Abdominal distension (gaseous); E11.9 Type 2 diabetes mellitus without complications; E78.00 Pure hypercholesterolemia, unspecified; I10 Essential (primary) hypertension; Z79.899 Other long term (current) drug therapy; Z88.0 Allergy status to penicillin; Z88.2 Allergy status to sulfonamides
CPT/HCPCS: 80053; 83880; 83690; 85025; 85610; 85730; 86850; 86900; 86901; 86920; 84484; 36415; 71045; 74176; 93005; 96374; 96361; 96375; 99285; J2405; J3490; J2270; J7030; Z7610 ×3

== ENCOUNTER 2023-09-05 16:50 | Emergency (ER) | payer MEDICAID ==
[~2023-09-05] VITALS: Ht 160 cm; Wt 136.0 kg
[2023-09-05 16:52] VITALS: O2SAT 97
[2023-09-05] MEDS: TRAMADOL 50MG TABLET PO ONE (18:52)
[2023-09-05] MEDS: SODIUM CHLORIDE 0.9% 1,000 ML IV ONE (18:53)
[2023-09-05 21:48] LABS: BASOPHILS % 0.2 % (0.0-2.0); DIFFERENTIAL COMMENT 0; EOSINOPHILS % 1.3 % (0.0-5.0); HEMATOCRIT. 24.4 % (36.0-48.0); HEMOGLOBIN. 8.1 g/dL (12.0-16.0); LYMPHOCYTES % 11.3 % (20.0-50.0); MEAN CORPUSCULAR HEMOGLOBIN 25.6 pg (28.0-32.0); MEAN CORPUSCULAR HGB CONC 33.4 g/dL (31.0-37.0); MEAN CORPUSCULAR VOLUME 76.5 fL (81.0-99.0); MEAN PLATELET VOLUME 8.6 fl (7.4-10.4); MONOCYTES % 9.5 % (2.0-8.0); NEUTROPHILS % 77.7 % (40.0-76.0); PLATELET 165 x1000/uL (130-400); RED BLOOD CELL COUNT 3.18 mill/uL (4.2-5.4); RED CELL DISTRIBUTION WIDTH 21.7 % (11.6-14.6); WHITE BLOOD COUNT 8.6 x1000/uL (4.5-11.0)
[2023-09-05 22:02] LABS: AMMONIA 66 uMol/L (<32)
[2023-09-05 22:13] LABS: ALANINE AMINOTRANSFERASE 62 IU/L (10-49); ALBUMIN 2.1 g/dL (3.2-4.8); ASPARTATE AMINOTRANSFERASE 138 IU/L (<34); BILIRUBIN TOTAL 1.1 mg/dL (0.1-1.0); CALCIUM 7.9 mg/dL (8.7-10.4); CARBON DIOXIDE 24 mEq/L (21-32); CHLORIDE 105 mEq/L (98-107); CREATINE KINASE 1499 IU/L (34-145); CREATININE 1.3 mg/dL (0.6-1.0); GLUCOSE 149 mg/dL (70-105); POTASSIUM 5.6 mEq/L (3.5-5.1); PROTEIN TOTAL 6.3 g/dL (6.0-8.3); SODIUM 133 mEq/L (136-145); UREA NITROGEN BLOOD 45 mg/dL (9-23)
[2023-09-05 22:15] LABS: TROPONIN I HIGH SENSITIVITY 40 ng/L (3.0-34)
[2023-09-06] MEDS ORDERED: LACTULOSE 20G/30ML UDC PO NR (01:30)
[2023-09-06] MEDS ORDERED: INSULIN REGULAR (HUMULIN R) 300UNITS/3ML VIAL IV NR (01:30)
[2023-09-06] MEDS ORDERED: DEXTROSE 50% WATER 50ML SYRINGE IV NR (01:30)
[2023-09-06] MEDS: DEXTROSE 50% WATER 50ML SYRINGE IV ONE (01:49)
[2023-09-06] MEDS: LACTULOSE 20G/30ML UDC PO ONE (01:51)
[2023-09-06] MEDS: INSULIN REGULAR (HUMULIN R) 300UNITS/3ML VIAL IV ONE (01:51)
[2023-09-06 02:29] VITALS: BP 116/39; PULSE 81; RESP 16; TEMP 98.5
== END 2023-09-06 02:58 | disposition short-term general hospital (02) ==
LOC: ER 16:50 → EDBEDREQ 20:55 → ER 09-06 02:58
DX: M62.82 Rhabdomyolysis (principal); K76.82 Hepatic encephalopathy; N17.9 Acute kidney failure, unspecified; R79.89 Other specified abnormal findings of blood chemistry; D50.9 Iron deficiency anemia, unspecified; E87.5 Hyperkalemia; E11.9 Type 2 diabetes mellitus without complications; E78.00 Pure hypercholesterolemia, unspecified; I10 Essential (primary) hypertension; R41.82 Altered mental status, unspecified; Z85.9 Personal history of malignant neoplasm, unspecified; Z79.899 Other long term (current) drug therapy; Z88.0 Allergy status to penicillin
CPT/HCPCS: 80053; 82140; 82550; 83605; 83690; 85025; 84484; 36415; 71045; 73560; 70450; 74176; 93970; 93005; 99291; 82962; 96374; 96375; J7030; Z7610 ×2; J1815